=== PATIENT | female | born 1970 | race Caucasian/White ===

== ENCOUNTER 2018-10-03 14:40 | Emergency (ER) | payer SELFPAY ==
[2018-10-03 15:02] VITALS: BP 135/74
[2018-10-03] MEDS ORDERED: PREDNISONE 20 MG TABLET PO ONE (15:43)
--- NOTE | 2018-10-03 17:31 | ER Document Report ---
HPI - HPI Patient complains to provider of: sore throat Time Seen by Provider: 10/03/18 15:35 Pain Level: 4 Context: Pleasant 48-year-old female presents to the emergency department for sore throat times 1 day. She says she has very difficult swallowing and has had a cough. She states that she has had a fever but currently denies, denies chills, denies nausea, vomiting, diarrhea, abdominal pain. She denies earache, headache, complains of tender lymph nodes in the right side of her neck. She has no other complaints. - CONSTITUTIONAL Constitutional: REPORTS: Fever, Chills - EENT EENT: REPORTS: Sore Throat. DENIES: Ear Pain, Eye problems - NEURO Neurology: REPORTS: Weakness. DENIES: Headache, Vision blurred, Dizzinesss / Vertigo - CARDIOVASCULAR Cardiovascular: REPORTS: Chest pain - RESPIRATORY Respiratory: REPORTS: Trouble Breathing, Coughing - GASTROINTESTINAL Gastrointestinal: DENIES: Abdominal Pain, Black / Bloody Stools - URINARY Urinary: DENIES: Dysuria, Urgency, Frequency - REPRODUCTIVE Reproductive: DENIES: : - MUSCULOSKELETAL Musculoskeletal: DENIES: Extremity pain Past Medical History - Social History Smoking Status: Unknown if Ever Smoked Family History: None Patient has suicidal ideation: No Patient has homicidal ideation: No Renal/ Medical History: Denies: Hx Peritoneal Dialysis Vertical Provider Document - CONSTITUTIONAL Agree With Documented VS: Yes Notes: PHYSICAL EXAMINATION: Reviewed vital signs and charting by RN GENERAL: Well-appearing, well-nourished and in no acute distress. HEAD: Atraumatic, normocephalic. EYES: Pupils equal round and reactive to light, extraocular movements intact, sclera anicteric, conjunctiva are normal. ENT: nares patent, very impressive 3+ tonsillar hypertrophy, very erythematous, bilateral tonsillar exudate. Moist mucous membranes. NECK: Normal range of motion, supple without lymphadenopathy but tender lymph nodes on palpation LUNGS: Breath sounds clear to auscultation bilaterally and equal. No wheezes rales or rhonchi. HEART: Regular rate and rhythm without murmurs ABDOMEN: Soft, nontender, normoactive bowel sounds. No guarding, no rebound. No masses appreciated. EXTREMITIES: Normal range of motion, no pitting or edema. No cyanosis. NEUROLOGICAL: Face symmetric. Tongue protrudes midline. PSYCH: Normal mood, normal affect. SKIN: Warm, Dry, normal turgor, no rashes or lesions noted. - INFECTION CONTROL TRAVEL OUTSIDE OF THE [place] IN LAST 30 DAYS: No Course - Re-evaluation Re-evalutation: 10/03/18 17:35 Overall well-appearing 48-year-old female comes to us with sore throat times 1 day. On exam her oropharynx is very impressive for 3+ tonsillar hypertrophy, erythema, tonsillar exudate bilateral. Group A strep rapid testing was negative. I gave her 1 dose of prednisone here in the emergency room. I am sending her home with an additional 4 days of steroid treatment to help with the inflammation in her throat. I told her that the culture nurse will call her if the strep grows on culture. - Vital Signs Vital signs: Temp Pulse Resp BP Pulse Ox 97.6 F 76 16 135/74 H 94 10/03/18 15:01 10/03/18 15:01 10/03/18 15:01 10/03/18 15:01 10/03/18 15:01 Discharge - Discharge Clinical Impression: Pharyngitis Qualifiers: Pharyngitis/tonsillitis etiology: unspecified etiology Qualified Code(s): J02.9 - Acute pharyngitis, unspecified Condition: Good Disposition: HOME, SELF-CARE Instructions: Oral Narcotic Medication ([facility]), Sore Throat ([facility]) Additional Instructions: Pharyngitis. It is unclear what caused it but it is most likely a virus. Your rapid strep test was negative. We did send the test to the lab to see if anything grows out. If it does he will be called by the culture nurse and prescribed an appropriate antibiotic. It is negative then continue with symptomatic treatment. He can do warm salt water gargles. You can take Motrin 600 mg every 6 hours and Tylenol 1000 hours. Please take the steroid that was prescribed to you for the next 4 days until it is complete. You should see symptomatic relief with that. You can also eat a couple of tablespoons of honey a couple times a day to help soothe your throat. If you have worsening symptoms, have difficulty breathing, or have any other concerning symptoms please immediately return to the emergency room. Prescriptions: Prednisone [Deltasone 20 mg Tablet] 3 tab PO DAILY 5 Days #12 tablet
== END 2018-10-03 17:25 | disposition home or self-care (01) ==
LOC: ER 14:40
DX: J02.9 Acute pharyngitis, unspecified (principal); R05 Cough; R53.1 Weakness; R07.9 Chest pain, unspecified
CPT/HCPCS: 99282; 87070; 87880; J7512; 87077

== ENCOUNTER 2018-11-16 12:10 | Emergency (ER) | payer SELFPAY ==
[2018-11-16] MEDS ORDERED: PREDNISONE 20 MG TABLET PO ONE (13:09)
[2018-11-16] MEDS ORDERED: IPRATROPIUM/ALBUTEROL 0.5-2.5 MG/3 ML AMPUL NEB ONE ×2 (13:09→16:38)
--- NOTE | 2018-11-16 13:11 | ER Document Report ---
ED Medical Screen (RME) - General Chief Complaint: Flu Symptoms Stated Complaint: FLU LIKE SYMPTOMS Time Seen by Provider: 11/16/18 13:04 Notes: 48-year-old female patient emergency department for evaluation of shortness of breath, cough and wheeze generally not feeling well. States she cannot breathe. Thinks that she may have "congestive heart failure". Patient was a smoker but has not smoked in over 6 years but does use the vapor cigarettes. Sent here by her primary care doctor to be evaluated. Patient states that she is excessively sleepy. I have greeted and performed a rapid initial assessment of this patient. A comprehensive ED assessment and evaluation of the patient, analysis of test results and completion of the medical decision making process will be conducted by additional ED providers. TRAVEL OUTSIDE OF THE [place] IN LAST 30 DAYS: No - Related Data Allergies/Adverse Reactions: No Known Allergies Allergy (Verified 11/16/18 12:14) Past Medical History Renal/ Medical History: Denies: Hx Peritoneal Dialysis Physical Exam - Vital signs Vitals: Temp Pulse Resp BP Pulse Ox 99.1 F 68 20 148/88 H 91 L 11/16/18 12:35 11/16/18 12:35 11/16/18 12:35 11/16/18 12:35 11/16/18 12:35 - Notes Notes: Physical exam: Respiratory: Expiratory wheezes bilaterally, no obvious peripheral pitting edema. Heart is regular rate and rhythm. Course - Vital Signs Vital signs: Temp Pulse Resp BP Pulse Ox 99.1 F 68 20 148/88 H 91 L 11/16/18 12:35 11/16/18 12:35 11/16/18 12:35 11/16/18 12:35 11/16/18 12:35
--- NOTE | 2018-11-16 13:32 | RADIOLOGY REPORT (SQ) ---
EXAM DESCRIPTION: CHEST 2 VIEWS COMPLETED DATE/TIME: 11/16/2018 1:22 pm REASON FOR STUDY: sob COMPARISON: None. EXAM PARAMETERS: NUMBER OF VIEWS: two views TECHNIQUE: Digital Frontal and Lateral radiographic views of the chest acquired. RADIATION DOSE: NA LIMITATIONS: none FINDINGS: LUNGS AND PLEURA: No opacities, masses or pneumothorax. No pleural effusion. MEDIASTINUM AND HILAR STRUCTURES: No masses or contour abnormalities. HEART AND VASCULAR STRUCTURES: Heart normal size. No evidence for failure. BONES: No acute findings. HARDWARE: None in the chest. OTHER: No other significant finding. IMPRESSION: NO ACUTE RADIOGRAPHIC FINDING IN THE CHEST. TECHNICAL DOCUMENTATION: JOB ID: [id number] [employer]- All Rights Reserved Reading location - IP/workstation name: [email or web address]
[2018-11-16 14:01] LABS: ABSOLUTE BASOPHILS # (AUTO) 0.1 10^3/uL (0.0-0.2); ABSOLUTE EOSINOPHILS # (AUTO) 0.4 10^3/uL (0.0-0.6); ABSOLUTE MONOCYTES (AUTO) 0.5 10^3/uL (0.1-1.4); ABSOLUTE NEUT (AUTO) 4.8 10^3/uL (1.7-8.2); BASOPHILS % (AUTO) 0.7 % (0-2); EOSINOPHILS % (AUTO) 4.7 % (0-6); HEMATOCRIT 44.7 % (36.0-47.0); HEMOGLOBIN 15.5 g/dL (12.0-15.5); LYMPHOCYTES % (AUTO) 26.2 % (13-45); MEAN CORPUSCULAR HEMOGLOBIN 31.4 pg (27.0-33.4); MEAN CORPUSCULAR HGB CONC 34.7 g/dL (32.0-36.0); MEAN CORPUSCULAR VOLUME 90 fl (80-97); MONOCYTES % (AUTO) 6.4 % (3-13); PLATELET COUNT 283 10^3/uL (150-450); RED BLOOD COUNT 4.95 10^6/uL (3.72-5.28); RED CELL DISTRIBUTION WIDTH 14.2 % (11.5-14.0); TOTAL CELLS COUNTED % (AUTO) 100 %; WHITE BLOOD COUNT 7.7 10^3/uL (4.0-10.5)
[2018-11-16 14:20] LABS: ALANINE AMINOTRANSFERASE 34 U/L (9-52); ALBUMIN 4.3 g/dL (3.5-5.0); ALKALINE PHOSPHATASE 51 U/L (38-126); ANION GAP 8 (5-19); ASPARTATE AMINO TRANSFERASE 21 U/L (14-36); BILIRUBIN,DIRECT 0.1 mg/dL (0.0-0.4); BILIRUBIN,TOTAL 0.5 mg/dL (0.2-1.3); BLOOD UREA NITROGEN 11 mg/dL (7-20); CALCIUM 9.6 mg/dL (8.4-10.2); CARBON DIOXIDE 32 mmol/L (22-30); CHLORIDE 103 mmol/L (98-107); GLUCOSE 96 mg/dL (75-110); POTASSIUM 4.2 mmol/L (3.6-5.0); SODIUM 143.3 mmol/L (137-145); TOTAL PROTEIN 7.4 g/dL (6.3-8.2)
[2018-11-16 14:33] LABS: NT PRO BNP 104 pg/mL (<125)
[2018-11-16 14:36] LABS: TROPONIN I < 0.012 ng/mL
[2018-11-16] MEDS ORDERED: ALBUTEROL SULFATE HFA (90 MCG/PUFF) 8 GM MDI (1 MDI/ER DISP) IH PRN (17:32)
--- NOTE | 2018-11-16 17:32 | ER Document Report ---
ED General - General Chief Complaint: Flu Symptoms Stated Complaint: FLU LIKE SYMPTOMS Time Seen by Provider: 11/16/18 13:04 Notes: Patient is a 48-year-old female who presents the emergency department with a chief complaint of shortness of breath, cough, and wheezing. She states that she just does not feel well and has not felt well on and off for the past year. Admits to having a fever on and off. She is on according to the patient although the patient states that she was seen by her primary care provider in the ED she told the provider in triage that she was sent to the emergency department by her primary care doctor, but denies this during my encounter. She denies any chest pain, abdominal pain, dysuria, or other symptoms. TRAVEL OUTSIDE OF THE [place] IN LAST 30 DAYS: No - Related Data Allergies/Adverse Reactions: No Known Allergies Allergy (Verified 11/16/18 12:14) Past Medical History - Social History Smoking Status: Former Smoker Family History: None Patient has suicidal ideation: No Patient has homicidal ideation: No - Past Medical History Cardiac Medical History: Reports: Hx Hypertension Renal/ Medical History: Denies: Hx Peritoneal Dialysis Psychiatric Medical History: Reports: Hx Depression Review of Systems - Review of Systems Notes: REVIEW OF SYSTEMS: CONSTITUTIONAL : See HPI EENT: See HPI CARDIOVASCULAR: Denies chest pain. RESPIRATORY: See HPI GASTROINTESTINAL: Denies nausea, vomiting, and diarrhea. Denies abdominal pain. Denies constipation. GENITOURINARY: Denies difficulty urinating, burning, blood in urine, urgency or frequency. MUSCULOSKELETAL: Denies neck and back pain. Denies joint pain or swelling. SKIN: Denies rash, itchiness, or lesions HEMATOLOGIC : Denies easy bruising or bleeding. LYMPHATIC: Denies swollen, painful, enlarged glands. NEUROLOGICAL: Denies no numbness or tingling denies weakness. Denies headache. Denies altered mental status. Denies alteration in speech. PSYCHIATRIC: Denies stress, anxiety, alteration in sleep patterns, or depression. All other systems reviewed and negative. Physical Exam - Vital signs Vitals: Temp Pulse Resp BP Pulse Ox 99.1 F 68 20 148/88 H 91 L 11/16/18 12:35 11/16/18 12:35 11/16/18 12:35 11/16/18 12:35 11/16/18 12:35 - Notes Notes: PHYSICAL EXAMINATION: GENERAL: Appears well, healthy, well-nourished, no acute distress. HEAD: Normocephalic, atraumatic. EYES: PERRL, conjunctiva normal, all extraocular movements intact, sclera nonicteric ENT: Moist mucous membranes. NECK: Supple, no noticeable swelling, redness, rash. Normal range of motion. LUNGS: Equal breath sounds bilaterally wheezes noted to auscultation. No rales or rhonchi. CARDIOVASCULAR: S1-S2, regular rate, regular rhythm. Radial pulses 2+, normal. ABDOMEN: Normoactive bowel sounds. Soft, nontender, no guarding, no rebound te nderness, and no masses palpated. EXTREMITIES: Normal strength and range of motion, no pitting or edema. No cyanosis. NEUROLOGICAL: Moves all extremities upon command. Strength 5/5 in all extremi ties. PSYCH: Normal mood, normal affect. SKIN: Warm, dry. No rash, lesions, ulcerations noted. Normal skin turgor. Course - Re-evaluation Re-evalutation: 11/16/18 16:30 The patient has some wheezing noted. Another DuoNeb treatment will be ordered. Her labs are unremarkable and her chest x-ray is normal, ruling out pneumonia. 11/16/18 17:30 Patient's lung sounds have greatly improved after her second DuoNeb treatment. She states that she does feel better. She will be sent home with a dose of steroids and with montelukast to help with her symptoms. - Vital Signs Vital signs: Temp Pulse Resp BP Pulse Ox 97.4 F 76 20 147/78 H 91 L 11/16/18 17:36 11/16/18 17:36 11/16/18 12:35 11/16/18 17:36 11/16/18 17:36 - Laboratory Result Diagrams: 11/16/18 13:45 11/16/18 13:45 Laboratory results interpreted by me: 11/16/18 11/16/18 13:45 13:45 RDW 14.2 H Carbon Dioxide 32 H Discharge - Discharge Clinical Impression: Cough, Flu-like symptoms Condition: Stable Disposition: HOME, SELF-CARE Additional Instructions: You were seen today in the emergency department for a cough and flulike symptoms. Your chest x-ray is normal. You have been prescribed an albuterol inhaler with a spacer. You can use 1-2 puffs every 4-6 hours as needed for shortness of breath. You have also been given Singulair, medication to help with your symptoms. Take 1 tablet every evening as needed. You can take 1000 mg of acetaminophen and 600 mg of ibuprofen as needed for any fever or pain. If you develop shortness of breath, worsening symptoms, or any symptoms that are worrisome to you, please return to the emergency department. Prescriptions: Montelukast Sodium [Singulair 10 mg Tablet] 10 mg PO QHS #30 tablet Prednisone [Deltasone 20 mg Tablet] 3 tab PO DAILY 5 Days #15 tablet
[2018-11-16 17:37] VITALS: BP 147/78
--- NOTE | 2018-11-16 19:18 | EKG REPORT ---
SEVERITY:- NORMAL ECG - SINUS RHYTHM : Confirmed by: Shae Cat MD 16-Nov-2018 19:17:27
== END 2018-11-16 18:17 | disposition home or self-care (01) ==
LOC: ER 12:10
DX: R05 Cough (principal); R06.02 Shortness of breath; R06.2 Wheezing; R50.9 Fever, unspecified; I10 Essential (primary) hypertension; Z87.891 Personal history of nicotine dependence
CPT/HCPCS: 93005; 94640 ×2; 99284; 36415; 85025; 80053; 84484; 83880; 71046; 93010; J7512; J3490; J7620

== ENCOUNTER 2019-05-10 00:57 | Emergency (ER) | payer SELFPAY ==
[2019-05-10 03:09] VITALS: BP 145/88
== END 2019-05-10 03:33 | disposition left against medical advice (07) ==
LOC: ER 00:57
DX: Z53.21 Procedure and treatment not carried out due to patient leaving prior to being seen by health care provider (principal); R06.02 Shortness of breath

== ENCOUNTER 2020-04-06 21:33 | Inpatient (IN) | payer SELFPAY ==
[2020-04-06 22:10] LABS: HEMATOCRIT 47.6 % (36.0-47.0); HEMOGLOBIN 15.9 g/dL (12.0-15.5); MEAN CORPUSCULAR HEMOGLOBIN 30.7 pg (27.0-33.4); MEAN CORPUSCULAR HGB CONC 33.5 g/dL (32.0-36.0); MEAN CORPUSCULAR VOLUME 92 fl (80-97); PLATELET COUNT 264 10^3/uL (150-450); RED BLOOD COUNT 5.18 10^6/uL (3.72-5.28); RED CELL DISTRIBUTION WIDTH 14.7 % (11.5-14.0); WHITE BLOOD COUNT 13.5 10^3/uL (4.0-10.5)
[2020-04-06] MEDS ORDERED: METHYLPREDNISOLONE INJ 125 MG/2 ML SDV IV ONE (22:12)
[2020-04-06] MEDS ORDERED: IPRATROPIUM/ALBUTEROL 0.5-2.5 MG/3 ML AMPUL NEB ONE (22:12)
[2020-04-06 22:15] LABS: ALBUMIN 4.5 g/dL (3.5-5.0); ALKALINE PHOSPHATASE 60 U/L (38-126); ANION GAP 8 (5-19); ASPARTATE AMINO TRANSFERASE 25 U/L (14-36); BILIRUBIN,TOTAL 0.5 mg/dL (0.2-1.3); BLOOD UREA NITROGEN 11 mg/dL (7-20); CALCIUM 9.2 mg/dL (8.4-10.2); CARBON DIOXIDE 28 mmol/L (22-30); CHLORIDE 101 mmol/L (98-107); GLUCOSE 122 mg/dL (75-110); POTASSIUM 4.1 mmol/L (3.6-5.0); TOTAL PROTEIN 7.8 g/dL (6.3-8.2)
[2020-04-06 22:29] LABS: ABSOLUTE LYMPHOCYTES# (MANUAL) 1.2 10^3/uL (0.5-4.7); ABSOLUTE MONOCYTES # (MANUAL) 0.4 10^3/uL (0.1-1.4); BAND NEUTROPHILS % (MANUAL) 2 % (3-5); BASOPHILS % (MANUAL) 0 % (0-2); EOSINOPHILS % (MANUAL) 0 % (0-6); LYMPHOCYTES % (MANUAL) 9 % (13-45); MONOCYTES % (MANUAL) 3 % (3-13); SEGMENTED NEUTROPHILS % (MAN) 86 % (42-78); TOTAL CELLS COUNTED 100
[2020-04-06 22:32] LABS: ANISOCYTOSIS SLIGHT; OVALOCYTES SLIGHT; PLATELET COMMENT ADEQUATE; POIKILOCYTOSIS SLIGHT; TOXIC GRANULATION SLIGHT
[2020-04-06] MEDS: MAGNESIUM SULFATE/D5W 1 GM/100 ML RTUPB IV SCH ×2 (22:44→23:22)
[2020-04-06] MEDS ORDERED: ONDANSETRON HCL INJ/PF 4 MG/2 ML SDV IV ONE (22:51)
--- NOTE | 2020-04-06 23:24 | RADIOLOGY REPORT (SQ) ---
EXAM DESCRIPTION: XR CHEST 1 VIEW COMPLETED DATE/TME: 04/06/2020 22:00 CLINICAL HISTORY: 49 years, Female, SOB COMPARISON: 11/16/2018 chest NUMBER OF VIEWS: 1 TECHNIQUE: Portable chest LIMITATIONS: None. FINDINGS: The heart size is normal. Patchy bibasilar airspace opacities. No pneumothorax IMPRESSION: Bibasilar airspace opacities worrisome for pneumonitis copyright 2010 [employer]- All Rights Reserved
[2020-04-06 23:58] LABS: APPEARANCE,URINE CLOUDY; BILIRUBIN,URINE NEGATIVE (NEGATIVE); COLOR,URINE AMBER; GLUCOSE, URINE NEGATIVE (NEGATIVE); KETONES,URINE NEGATIVE (NEGATIVE); LEUKOCYTE ESTERASE,URINE NEGATIVE (NEGATIVE); NITRITE,URINE NEGATIVE (NEGATIVE); PROTEIN,URINE 100 mg/dL (NEGATIVE); URINE SPECIFIC GRAVITY 1.024; UROBILINOGEN,URINE NEGATIVE mg/dL (<2.0)
--- NOTE | 2020-04-07 | ER Document Report ---
Entered by IZA YATES SCRIBE 04/06/20 [id number] Acting as scribe for:DANDRE QUINTANA IV, MD ED Respiratory Problem - General Chief Complaint: Respiratory Distress Stated Complaint: SHORTNESS OF BREATH Time Seen by Provider: 04/06/20 22:01 Primary Care Provider: JACQUES SEWELL MD [Primary Care Provider] - Follow up as needed Mode of Arrival: Medic Information source: Patient, Emergency Med Personnel Notes: This 49 year old female patient with a history of asthma brought in by EMS from home presents to the ED today with complaints of respiratory distress that started prior to arrival. ED nurse reports that the patient woke up around 0300 this morning with shortness of breath that became progressively worse throughout the day. Patient tried multiple nebulizer treatments at home without relief. EMS reports a O2 saturations of 79-80% on RA upon their arrival. Patient received x3 DuoNeb treatments en route via EMS. Patient was placed on NRB upon ED arrival with O2 sats up to 94%. She notes positive COVID exposure and fevers at home t [place] that have since resolved with Tylenol. TRAVEL OUTSIDE OF THE [place] IN LAST 30 DAYS: No - Related Data Allergies/Adverse Reactions: No Known Allergies Allergy (Verified 11/16/18 12:14) Past Medical History - General Information source: Patient, [facility] Records - Social History Smoking Status: Current Every Day Smoker Smoking Education Provided: No Family History: Reviewed & Not Pertinent Patient has suicidal ideation: No Patient has homicidal ideation: No - Past Medical History Cardiac Medical History: Reports: Hx Hypertension Pulmonary Medical History: Reports: Hx Asthma Psychiatric Medical History: Reports: Hx Depression Review of Systems - Review of Systems Constitutional: See HPI, Fever EENT: No symptoms reported Cardiovascular: No symptoms reported Respiratory: See HPI, Short of breath Gastrointestinal: No symptoms reported Genitourinary: No symptoms reported Female Genitourinary: No symptoms reported Musculoskeletal: No symptoms reported Skin: No symptoms reported Hematologic/Lymphatic: No symptoms reported Neurological/Psychological: No symptoms reported -: Yes All other systems reviewed and negative Physical Exam - Vital signs Vitals: Temp Resp Pulse Ox 98.7 F 17 91 L 04/06/20 21:33 04/06/20 21:33 04/06/20 21:33 - General General appearance: Alert, Other - Speaks in short sentences - HEENT Head: Normocephalic, Atraumatic Eyes: Normal Pupils: PERRL - Respiratory Respiratory status: Tachypnea, Other - 94-96% O2 saturations with NRB Chest status: Nontender Breath sounds: Wheezing - Diffuse wheezing Chest palpation: Normal - Cardiovascular Rhythm: Regular, Tachycardia Heart sounds: Normal auscultation Murmur: No Friction rub: No Gallop: None auscultated - Abdominal Inspection: Normal Distension: No distension Bowel sounds: Normal Tenderness: Nontender - Abdomen soft Organomegaly: No organomegaly - Back Back: Normal, Nontender - Extremities General upper extremity: Normal inspection General lower extremity: Normal inspection - Neurological Neuro grossly intact: Yes Orientation: AAOx4 [place] Coma Scale Eye Opening: Spontaneous [place] Coma Scale Verbal: Oriented [place] Coma Scale Motor: Obeys Commands [place] Coma Scale Total: 15 - Psychological Associated symptoms: Normal affect, Normal mood - Skin Skin Temperature: Warm Skin Moisture: Dry Skin Color: Normal Course - Re-evaluation Re-evalutation: 04/07/20 03:31 Patient's oxygen saturation drops down into the 80s off of O2. Patient is not O2 dependent at home. Results of ED MSE discussed with patient. Admission recommended, patient accepted. - Vital Signs Vital signs: Temp Pulse Resp BP Pulse Ox 98.9 F 18 123/77 93 04/06/20 21:47 04/07/20 01:01 04/07/20 01:01 04/07/20 01:01 - Laboratory Result Diagrams: 04/06/20 21:42 04/06/20 21:42 Laboratory results interpreted by me: 04/06/20 04/06/20 04/06/20 21:42 21:42 23:31 WBC 13.5 H Hgb 15.9 H Hct 47.6 H RDW 14.7 H Seg Neuts % (Manual) 86 H Band Neutrophils % 2 L Lymphocytes % (Manual) 9 L Abs Neuts (Manual) 11.9 H VBG pH VBG pCO2 Sodium 136.7 L Glucose 122 H Urine Protein 100 H Urine Blood LARGE H 04/07/20 01:53 WBC Hgb Hct RDW Seg Neuts % (Manual) Band Neutrophils % Lymphocytes % (Manual) Abs Neuts (Manual) VBG pH 7.26 L VBG pCO2 66.8 H* Sodium Glucose Urine Protein Urine Blood - Diagnostic Test Radiology reviewed: Reports reviewed - EKG Interpretation by Me Additional EKG results interpreted by me: 04/07/20 03:32 EKG obtained on 04/06/2020 at 2205 hrs. was interpreted by this MD. Findings: Normal sinus rhythm, rate 75, normal axis, P waves preceding QRS complexes, QRS complexes appear narrow, there are no obvious patterns of ST segment elevation or depression present to suggest acute myocardial ischemia or infarction. Impression: Normal sinus rhythm with nonspecific ST segments. - Consults dr. mario olivas Time consulted: 03:30 - dr. olivas agreed to admit pt Reason for consultation: 04/07/20 03:34 bilateral pneumonia, acute respiratory failure with hypoxia Discharge - Discharge Clinical Impression: Acute respiratory failure with hypoxia Bilateral pneumonia Qualifiers: Pneumonia type: due to unspecified organism Lung location: unspecified part of lung Qualified Code(s): J18.9 - Pneumonia, unspecified organism Asthma exacerbation Qualifiers: Asthma severity: unspecified severity Asthma persistence: unspecified Qualified Code(s): J45.901 - Unspecified asthma with (acute) exacerbation Disposition: ADMITTED INPATIENT Admitting Provider: Alma (Hospitalist) Unit Admitted: Medical Floor Referrals: JACQUES SEWELL MD [Primary Care Provider] - Follow up as needed I personally performed the services described in the documentation, reviewed and edited the documentation which was dictated to the scribe in my presence, and it accurately records my words and actions.
[2020-04-07 02:29] LABS: VENOUS BLOOD BASE EXCESS -0.1 mmol/L; VENOUS BLOOD HCO3 29.2 mmol/L (20-32); VENOUS BLOOD PH 7.26 (7.30-7.42)
[2020-04-07 02:31] LABS: VENOUS BLOOD PCO2 66.8 mmHg (35-63)
[2020-04-07] MEDS ORDERED: LEVOFLOXACIN 750 MG/D5W RTU 750 MG/150 ML RTUPB IV ONE (03:00)
[2020-04-07] MEDS ORDERED: NORMAL SALINE IV ONE (03:00)
[2020-04-07] MEDS ORDERED: LEVALBUTEROL HCL NEB 0.63 MG/3 ML AMPUL NEB PRN (03:57)
[2020-04-07] MEDS ORDERED: GUAIFENESIN SYRP 200 MG/10 ML UDC PO PRN (03:57)
[2020-04-07] MEDS ORDERED: HYDRALAZINE HCL INJ/PF 20 MG/1 ML SDV IV PRN (04:03)
[2020-04-07] MEDS ORDERED: ACETAMINOPHEN 325 MG TABLET PO PRN (04:03)
[2020-04-07] MEDS ORDERED: NICOTINE 21 MG/24 HR PATCH.TD24 TD PRN (04:03)
[2020-04-07] MEDS ORDERED: MAGNESIUM HYDROXIDE SUSP 30 ML UDCUP PO PRN (04:03)
[2020-04-07] MEDS ORDERED: METOPROLOL TARTRATE PF/INJ 5 MG/5 ML SDV IV PRN (04:03)
[2020-04-07] MEDS ORDERED: LORAZEPAM INJ 2 MG/1 ML VIAL IV PRN (04:03)
[2020-04-07] MEDS ORDERED: MAG HYDROX/AL HYDROX/SIMETH SUSP 30 ML UDCUP PO PRN (04:03)
[2020-04-07] MEDS ORDERED: PROMETHAZINE HCL INJ 25 MG/1 ML VIAL IV PRN (04:05)
[2020-04-07] MEDS: HEPARIN SOD (PORCINE) 5,000 UNIT/ML 1 ML VIAL SUBCUT SCH ×3 (06:06→23:21)
--- NOTE | 2020-04-07 06:12 | PDOC H&P ---
History of Present Illness Admission Date/PCP: 04/07/2020 03:32 JACQUES SEWELL MD Patient complains of: Dyspnea History of Present Illness: KAITLIN SHAFER is a 49 year old female who presents the emergency room with a one-day history of dyspnea. 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 Her dyspnea was worsened by exertion or activity, was accompanied by wheezing and a subjective fever, and is associated with COVID-19 exposure. She denies other associated or accompanying signs and symptoms. She admits prior similar episodes due to her asthma. She is an everyday cigarette smoker. She has not identified any additional aggravating or ameliorating factors for her dyspnea. In the emergency room she was found to have an elevated white blood count, hypoxic and hypercapnic respiratory failure on arterial blood gases and a chest x-ray revealing bibasilar pneumonia. She was treated with IV antibiotics, nebulizer therapy and intravenous Solu-Medrol as well as intravenous magnesium sulfate. She was tested for COVID-19 and blood cultures were performed. She was subsequently admitted to the hospital for further evaluation treatment. Past Medical History Cardiac Medical History: Reports: Hypertension Denies: Atrial Fibrillation, Coronary Artery Disease, DVT, Hyperlipidema, Peripheral Vascular Disease, Pulmonary Embolism Pulmonary Medical History: Reports: Asthma Denies: Chronic Obstructive Pulmonary Disease (COPD) EENT Medical History: Denies: Cataracts, Ears - Hearing aids Neurological Medical History: Denies: Hemorrhagic CVA, Ischemic CVA, Seizures Endocrine Medical History: Denies: Diabetes Mellitus Type 1, Diabetes Mellitus Type 2, Hyperthyroidism, Hypothyroidism Renal/ Medical History: Denies: Chronic Kidney Disease, Nephrolithiasis Malignancy Medical History: Reports: None GI Medical History: Denies: Cirrhosis, Crohn's Disease, Gastroesophageal Reflux Disease, Hepatitis, Peptic Ulcer Disease, Ulcerative Colitis Musculoskeltal Medical History: Denies: Arthritis, Gout Skin Medical History: Denies: Eczema, Psoriasis Psychiatric Medical History: Reports: Depression, Tobacco Dependency Denies: Alcohol Dependency, Substance Abuse Traumatic Medical History: Reports: None Hematology: Denies: Anemia, Bleeding Tendencies Infectious Medical History: Reports: None Past Surgical History Past Surgical History: Reports: None Social History Lives with: Spouse/Significant other Smoking Status: Current Every Day Smoker Cigarettes Packs Per Day: 0.5 Electronic Cigarette use?: No Frequency of Alcohol Use: None Hx Recreational Drug Use: No Drugs: None Hx Prescription Drug Abuse: No - Advance Directive Resuscitation Status: Full Code Surrogate healthcare decision maker:: Esa Manuel Family History Family History: Hypertension. denies: CAD, DM, Malignancy Parental Family History Reviewed: Yes Children Family History Reviewed: No Sibling(s) Family History Reviewed.: Yes Medication/Allergy Home Medications: Prednisone [Deltasone 20 mg Tablet] 3 tab PO DAILY 5 Days #12 tablet 10/03/18 Montelukast Sodium [Singulair 10 mg Tablet] 10 mg PO QHS #30 tablet 11/16/18 Prednisone [Deltasone 20 mg Tablet] 3 tab PO DAILY 5 Days #15 tablet 11/16/18 Allergies/Adverse Reactions: No Known Allergies Allergy (Verified 11/16/18 12:14) Review of Systems Constitutional: PRESENT: as per HPI, fever(s). ABSENT: chills Eyes: ABSENT: visual disturbances, other - Eye pain Ears: ABSENT: hearing changes, other - Ear pain Nose, Mouth, and Throat: ABSENT: headache(s), sore throat Cardiovascular: PRESENT: as per HPI, dyspnea on exertion. ABSENT: chest pain, edema, orthropnea, palpitations Respiratory: PRESENT: as per HPI, dyspnea, other - Wheezing Gastrointestinal: ABSENT: abdominal pain, constipation, diarrhea, nausea, vomiting Genitourinary: ABSENT: dysuria, hematuria Musculoskeletal: ABSENT: back pain, joint swelling Integumentary: ABSENT: pruritus, rash Neurological: ABSENT: confusion, convulsions, focal weakness, memory loss, syncope Psychiatric: ABSENT: anxiety, depression Endocrine: ABSENT: cold intolerance, heat intolerance Hematologic/Lymphatic: ABSENT: easy bleeding, easy bruising Allergic/Immunologic: ABSENT: seasonal rhinorrhea Physical Exam Vital Signs: Temp Pulse Resp BP Pulse Ox 98.9 F 18 123/77 93 04/06/20 21:47 04/07/20 01:01 04/07/20 01:01 04/07/20 01:01 Intake & Output 04/05/20 04/06/20 04/07/20 23:59 23:59 23:59 Intake Total 100 100 Balance 100 100 Weight 92.533 kg General appearance: PRESENT: cooperative, mild distress - Secondary to dyspnea Head exam: ABSENT: atraumatic, normocephalic Eye exam: PRESENT: conjunctiva pink. ABSENT: conjunctival injection, scleral icterus Ear exam: PRESENT: normal external ear exam. ABSENT: bleeding, drainage Mouth exam: PRESENT: dry mucosa, neck supple Neck exam: ABSENT: thyromegaly, tracheal deviation Respiratory exam: PRESENT: accessory muscle use, decreased breath sounds - Mildly decreased breath sounds throughout all oquendo, prolonged expiratory phas - Moderately prolonged expiratory phase throughout all oquendo, symmetrical, wheezes - Expiratory wheezes throughout all oquendo Cardiovascular exam: PRESENT: RRR. ABSENT: clicks, gallop, rubs Pulses: PRESENT: normal radial pulses, normal dorsalis pedis pul Vascular exam: PRESENT: normal capillary refill. ABSENT: pallor GI/Abdominal exam: PRESENT: normal bowel sounds, soft. ABSENT: tenderness Rectal exam: PRESENT: deferred Extremities exam: ABSENT: joint swelling, pedal edema Musculoskeletal exam: ABSENT: deformity, dislocation Neurological exam: PRESENT: alert, oriented to person, oriented to place, oriented to time, oriented to situation, CN II-XII grossly intact. ABSENT: motor sensory deficit Psychiatric exam: PRESENT: appropriate affect, normal mood Skin exam: PRESENT: dry, intact, warm. ABSENT: jaundice, rash, urticaria Results Laboratory Results: 04/06/20 21:42 04/06/20 21:42 04/06/20 04/06/20 04/06/20 21:42 21:42 23:31 WBC 13.5 H RBC 5.18 Hgb 15.9 H Hct 47.6 H MCV 92 MCH 30.7 MCHC 33.5 RDW 14.7 H Plt Count 264 Seg Neutrophils % Not Reportable VBG pH VBG pCO2 VBG HCO3 VBG Base Excess Sodium 136.7 L Potassium 4.1 Chloride 101 Carbon Dioxide 28 Anion Gap 8 BUN 11 Creatinine 0.81 Est GFR ( Amer) > 60 Glucose 122 H Lactic Acid Calcium 9.2 Total Bilirubin 0.5 AST 25 Alkaline Phosphatase 60 Total Protein 7.8 Albumin 4.5 Urine Color PJ Urine Appearance CLOUDY Urine pH 5.0 Ur Specific [place] 1.024 Urine Protein 100 H Urine Glucose (UA) NEGATIVE Urine Ketones NEGATIVE Urine Blood LARGE H Urine Nitrite NEGATIVE Ur Leukocyte Esterase NEGATIVE Urine WBC (Auto) 5 Urine RBC (Auto) 7 04/07/20 04/07/20 01:25 01:53 WBC RBC Hgb Hct MCV MCH MCHC RDW Plt Count Seg Neutrophils % VBG pH 7.26 L VBG pCO2 66.8 H* VBG HCO3 29.2 VBG Base Excess -0.1 Sodium Potassium Chloride Carbon Dioxide Anion Gap BUN Creatinine Est GFR ( Amer) Glucose Lactic Acid 1.6 Calcium Total Bilirubin AST Alkaline Phosphatase Total Protein Albumin Urine Color Urine Appearance Urine pH Ur Specific [place] Urine Protein Urine Glucose (UA) Urine Ketones Urine Blood Urine Nitrite Ur Leukocyte Esterase Urine WBC (Auto) Urine RBC (Auto) Impressions: Chest X-Ray 04/06/20 22:00 IMPRESSION: Bibasilar airspace opacities worrisome for pneumonitis copyright 2010 [employer]- All Rights Reserved Assessment and Plan - Diagnosis (1) Acute exacerbation of COPD with asthma Is this a current diagnosis for this admission?: Yes (2) Acute respiratory failure with hypoxia and hypercapnia Is this a current diagnosis for this admission?: Yes (3) Community acquired bilateral lower lobe pneumonia Is this a current diagnosis for this admission?: Yes (4) Hypertension Qualifiers: Hypertension type: essential hypertension Qualified Code(s): I10 - Ess ential (primary) hypertension Is this a current diagnosis for this admission?: Yes (5) Depression Qualifiers: Depression Type: unspecified Qualified Code(s): F32.9 - Major depressive disorder, single episode, unspecified Is this a current diagnosis for this admission?: Yes (6) Tobacco use disorder Is this a current diagnosis for this admission?: Yes - Plan Summary Summary: Patient will be admitted to the medical floor where she will receive routine supportive and symptomatic cares. She was receive supplemental oxygen via BiPAP in order to maintain an adequate oxygen saturation. She will receive an aggressive pulmonary toilet utilizing nebulized, Xopenex, Atrovent, Pulmicort a nd Mucomyst. She will receive IV Solu-Medrol to complete a burst dose therapy protocol requiring 3 additional doses of 40 mg IV every 6 hours. She will be on a cardiac diet. She will be treated with IV antibiotics utilizing Rocephin and Zithromax. Smoking cessation is advised and counseled briefly at the bedside a nicotine replacement patch is available for the patient's use, if desired. CBCs , metabolic profiles, magnesium levels and additional laboratory and/or radiographic evaluations will be obtained as needed. - Time Time Spent with patient: 15-24 minutes Smoking Cessation Education: 3 to 10 minutes Medications reviewed and adjusted accordingly: Yes Anticipated Discharge Disposition: Home, Self Care Anticipated Discharge: when bed available - Undetermined - Inpatient Certification Based on my medical assessment, after consideration of the patient's comorbidities, presenting symptoms, or acuity I expect that the services needed warrant INPATIENT care.: Yes I certify that my determination is in accordance with my understanding of Medicare's requirements for reasonable and necessary INPATIENT services [42 CFR 412.3e].: Yes Medical Necessity: Need Close Monitoring Due to Risk of Patient Decompensation, Need for Nebulizer Therapy and Monitoring of Response, Need for IV Antibiotics
[2020-04-07] MEDS: BUDESONIDE NEB 0.5 MG/2 ML AMPUL NEB SCH ×2 (08:09→20:40)
[2020-04-07] MEDS: LEVALBUTEROL HCL NEB 1.25 MG/3 ML AMPUL NEB SCH ×2 (08:10→15:45)
[2020-04-07] MEDS: IPRATROPIUM BROMIDE 0.02% NEB 0.5 MG/2.5 ML AMPUL NEB SCH ×2 (08:10→15:45)
[2020-04-07] MEDS: ACETYLCYSTEINE 20% SOLN 800 MG/4 ML VIAL.NEB NEB SCH ×2 (08:13→20:40)
[2020-04-07] MEDS ORDERED: LEVALBUTEROL HCL NEB 1.25 MG/3 ML AMPUL NEB ONE (08:14)
[2020-04-07] MEDS: FAMOTIDINE 20 MG TABLET PO SCH ×2 (09:59→23:23)
[2020-04-07] MEDS: CEFTRIAXONE 1 GM/D5W RTU 1 GM/50 ML RTUPB IV SCH (09:59)
[2020-04-07] MEDS: METHYLPREDNISOLONE INJ 40 MG/1 ML SDV IV SCH ×3 (09:59→23:22)
[2020-04-07] MEDS: DOCUSATE SODIUM 100 MG CAPSULE PO SCH ×2 (09:59→17:55)
[2020-04-07] MEDS: AZITHROMYCIN 500 MG in DEXTROSE 5%-WATER 250 ML IV SCH (10:11)
[2020-04-07 11:46] LABS: ARTERIAL BLOOD FIO2 50%; ARTERIAL BLOOD H2CO3 1.69 mmol/L (1.05-1.35); ARTERIAL BLOOD HCO3 25.8 mmol/L (20-24); ARTERIAL BLOOD O2 SATURATION 89.7 % (94-98); ARTERIAL BLOOD PCO2 56.1 mmHg (35-45); ARTERIAL BLOOD PH 7.28 (7.35-7.45); ARTERIAL BLOOD PO2 64.6 mmHg (80-100); ARTERIAL BLOOD TOTAL CO2 27.5 mmol/L (21-25)
[2020-04-07] MEDS: SERTRALINE HCL 50 MG TABLET PO SCH (13:46)
[2020-04-07] MEDS ORDERED: IPRATROPIUM/ALBUTEROL 0.5-2.5 MG/3 ML AMPUL NEB PRN (18:27)
--- NOTE | 2020-04-07 19:21 | EKG REPORT ---
SEVERITY:- NORMAL ECG - SINUS RHYTHM : Confirmed by: Max Maya 07-Apr-2020 19:20:39
[2020-04-07] MEDS: IPRATROPIUM/ALBUTEROL 0.5-2.5 MG/3 ML AMPUL NEB SCH (20:40)
[2020-04-07] MEDS: MELATONIN 5 MG TABLET PO PRN (23:23)
[2020-04-08] MEDS: HEPARIN SOD (PORCINE) 5,000 UNIT/ML 1 ML VIAL SUBCUT SCH ×3 (05:34→21:21)
[2020-04-08 07:21] LABS: HEMATOCRIT 42.4 % (36.0-47.0); MEAN CORPUSCULAR HEMOGLOBIN 30.7 pg (27.0-33.4); MEAN CORPUSCULAR VOLUME 93 fl (80-97); PLATELET COUNT 253 10^3/uL (150-450); RED BLOOD COUNT 4.57 10^6/uL (3.72-5.28); RED CELL DISTRIBUTION WIDTH 14.7 % (11.5-14.0); WHITE BLOOD COUNT 18.3 10^3/uL (4.0-10.5)
[2020-04-08 07:45] LABS: ANION GAP 6 (5-19); BLOOD UREA NITROGEN 21 mg/dL (7-20); CALCIUM 8.9 mg/dL (8.4-10.2); CARBON DIOXIDE 27 mmol/L (22-30); CHLORIDE 105 mmol/L (98-107); GLUCOSE 161 mg/dL (75-110)
[2020-04-08] MEDS: ACETYLCYSTEINE 20% SOLN 800 MG/4 ML VIAL.NEB NEB SCH ×2 (09:18→21:30)
[2020-04-08] MEDS: BUDESONIDE NEB 0.5 MG/2 ML AMPUL NEB SCH ×2 (09:18→21:30)
[2020-04-08] MEDS: IPRATROPIUM/ALBUTEROL 0.5-2.5 MG/3 ML AMPUL NEB SCH ×3 (09:18→21:30)
[2020-04-08] MEDS ORDERED: AMLODIPINE BESYLATE 5 MG TABLET PO SCH (10:00)
[2020-04-08] MEDS ORDERED: LISINOPRIL 10 MG TABLET PO SCH (10:00)
[2020-04-08] MEDS: FAMOTIDINE 20 MG TABLET PO SCH ×2 (10:23→21:20)
[2020-04-08] MEDS: SERTRALINE HCL 50 MG TABLET PO SCH (10:23)
[2020-04-08] MEDS: CEFTRIAXONE 1 GM/D5W RTU 1 GM/50 ML RTUPB IV SCH (10:24)
[2020-04-08] MEDS: DOCUSATE SODIUM 100 MG CAPSULE PO SCH ×2 (10:26→17:45)
--- NOTE | 2020-04-08 11:01 | PDOC PROGRESS REPORT ---
Subjective Progress Note for:: 04/08/20 Subjective:: KAITLIN SHAFER is a 49 year old female who presents the emergency room with a one-day history of dyspnea. 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 Her dyspnea was worsened by exertion or activity, was accompanied by wheezing and a subjective fever, and is associated with COVID-19 exposure. She denies other associated or accompanying signs and symptoms. She admits prior similar episodes due to her asthma. She is an everyday cigarette smoker. She has not identified any additional aggravating or ameliorating factors for her dyspnea. In the emergency room she was found to have an elevated white blood count, hypoxic and hypercapnic respiratory failure on arterial blood gases and a chest x-ray revealing bibasilar pneumonia. She was treated with IV antibiotics, nebulizer therapy and intravenous Solu-Medrol as well as intravenous magnesium sulfate. She was tested for COVID-19 and blood cultures were performed. She was subsequently admitted to the hospital for further evaluation treatment 04/08/2020. Yesterday patient was noted to be having worsening shortness of breath, and ABG showed hypoxemia and hypercarbia, patient was transitioned to BiPAP, overnight she had to use BiPAP, stating that she had a rough night, this morning is still on BiPAP however does not seem to be in moderate distress, she is p.o. tolerant having normal bowel bladder movement, denies any fever, chills, nausea, vomiting, diarrhea, constipation or any urinary symptoms. Reason For Visit: ACUTE EXACERBATION OF COPD WITH ASTHMA,ACUTE Physical Exam Vital Signs: Temp Pulse Resp BP Pulse Ox 97.5 F 66 25 H 108/67 99 04/08/20 09:39 04/08/20 09:39 04/08/20 09:39 04/08/20 09:39 04/08/20 09:39 Pulse Oximeter Continuous Start: 04/07/20 03:57 Freq: RTQ4 Status: Active Protocol: Document 04/08/20 04:00 AARON (Rec: 04/08/20 04:12 AARON [id number]) Pulse Oximetry Assessment Oxygen Saturation (92-100) 98 Oxygen Delivery Method Bi-pap Fraction of Inspired Oxygen (FIO2) 50 Equipment Usage Equipment in Use Continuous SpO2 Machine # 7 Intake & Output 04/07/20 04/08/20 04/09/20 06:59 06:59 06:59 Intake Total 3125 660 Balance 3125 660 Weight 103.9 kg 103.9 kg General appearance: PRESENT: mild distress, obese Head exam: PRESENT: atraumatic, normocephalic Respiratory exam: PRESENT: prolonged expiratory phas. ABSENT: rales, rhonchi, wheezes Cardiovascular exam: PRESENT: RRR, tachycardia. ABSENT: diastolic murmur, rubs, systolic murmur GI/Abdominal exam: PRESENT: normal bowel sounds, soft. ABSENT: distended, guarding, mass, organolmegaly, rebound, tenderness Neurological exam: PRESENT: alert, awake, oriented to person, oriented to place, oriented to time, oriented to situation, CN II-XII grossly intact. ABSENT: motor sensory deficit Results Laboratory Results: 04/08/20 06:40 04/08/20 06:40 04/07/20 04/08/20 04/08/20 11:25 06:40 06:40 WBC 18.3 H RBC 4.57 Hgb 14.0 Hct 42.4 MCV 93 MCH 30.7 MCHC 33.0 RDW 14.7 H Plt Count 253 Carbonic Acid 1.69 H HCO3/H2CO3 Ratio 15:1 ABG pH 7.28 L ABG pCO2 56.1 H ABG pO2 64.6 L ABG HCO3 25.8 H ABG O2 Saturation 89.7 L ABG Base Excess -2.0 FiO2 50% Sodium 137.8 Potassium 5.0 Chloride 105 Carbon Dioxide 27 Anion Gap 6 BUN 21 H Creatinine 0.68 Est GFR ( Amer) > 60 Glucose 161 H Calcium 8.9 04/07/20 01:25 Blood Blood Culture (PCR) - Final Streptococcus Species Impressions: Chest X-Ray 04/06/20 22:00 IMPRESSION: Bibasilar airspace opacities worrisome for pneumonitis copyright 2011 [employer]- All Rights Reserved Assessment and Plan - Diagnosis (1) Community acquired bilateral lower lobe pneumonia Is this a current diagnosis for this admission?: Yes Plan: Most likely community-acquired, due to gram-positive and Chlamydia Streptococcus pneumonia complicated by underlying COPD/asthma and tobacco abuse. ABG 04/07/2020 shows hypercarbia and hypoxemia. Day 3 IV antibiotics. Day 3 IV azithromycin. Day 3 IV ceftriaxone. Day 3 IV steroids. Supplemental oxygen and BiPAP. Continue duo nebs, ICS, LABA, LABA, flutter valve and incentive spirometry. Plan culture 1/2 is positive for Streptococcus, pending sensitivity. Repeat blood culture. Follow-up blood culture. (2) Acute exacerbation of COPD with asthma Is this a current diagnosis for this admission?: Yes Plan: Acute exacerbated with wheezing on physical examination. Outpatient patient still smoking. Continue BiPAP, duo nebs, ICS, LABA, LABA, pulmonary toileting, incentive spirometry and flutter valve. (3) Acute respiratory failure with hypoxia and hypercapnia Is this a current diagnosis for this admission?: Yes Plan: As per #1. (4) Depression Qualifiers: Depression Type: unspecified Qualified Code(s): F32.9 - Major depressive disorder, single episode, unspecified Is this a current diagnosis for this admission?: Yes Plan: Denies any suicidal or homicidal ideation. Resume home meds. Outpatient PCP and psychiatry follow-up. (5) Hypertension Qualifiers: Hypertension type: essential hypertension Qualified Code(s): I10 - Essential (primary) hypertension Is this a current diagnosis for this admission?: Yes Plan: Euvolemic. Normotensive. Resume home meds. Outpatient PCP follow-up with adjustment of daily. IV PRN hydralazine and metoprolol. (6) Tobacco use disorder Is this a current diagnosis for this admission?: Yes Plan: Counseled on quitting. NicoDerm patch will be provided. (7) Morbid obesity Is this a current diagnosis for this admission?: Yes Plan: Diet and lifestyle modification recommended. Will obtain TSH, lipid panel and hemoglobin A1c. - Plan Summary Summary: Patient will be admitted to the medical floor where she will receive routine supportive and symptomatic cares. She was receive supplemental oxygen via BiPAP in order to maintain an adequate oxygen saturation. She will receive an aggressive pulmonary toilet utilizing nebulized, Xopenex, Atrovent, Pulmicort and Mucomyst. She will receive IV Solu-Medrol to complete a burst dose therapy protocol requiring 3 additional doses of 40 mg IV every 6 hours. She will be on a cardiac diet. She will be treated with IV antibiotics utilizing Rocephin and Zithromax. Smoking cessation is advised and counseled briefly at the bedside a nicotine replacement patch is available for the patient's use, if desired. CBCs, metabolic profiles, magnesium levels and additional laboratory and/or radiographic evaluations will be obtained as needed. - Time Time Spent with patient: 15-24 minutes Smoking Cessation Education: 3 to 10 minutes Medications reviewed and adjusted accordingly: Yes Anticipated Discharge Disposition: Home, Self Care Anticipated Discharge: within 36 hours
[2020-04-08] MEDS: AZITHROMYCIN 500 MG in DEXTROSE 5%-WATER 250 ML IV SCH (11:14)
[2020-04-08] MEDS: MELATONIN 5 MG TABLET PO PRN (21:20)
[2020-04-08] MEDS: MONTELUKAST SODIUM 10 MG TABLET PO SCH (21:21)
[2020-04-09] MEDS: HEPARIN SOD (PORCINE) 5,000 UNIT/ML 1 ML VIAL SUBCUT SCH ×3 (05:33→22:51)
[2020-04-09 07:20] LABS: HEMATOCRIT 42.1 % (36.0-47.0); MEAN CORPUSCULAR HEMOGLOBIN 30.7 pg (27.0-33.4); MEAN CORPUSCULAR HGB CONC 33.2 g/dL (32.0-36.0); MEAN CORPUSCULAR VOLUME 92 fl (80-97); PLATELET COUNT 236 10^3/uL (150-450); RED BLOOD COUNT 4.56 10^6/uL (3.72-5.28); WHITE BLOOD COUNT 10.3 10^3/uL (4.0-10.5)
[2020-04-09 07:44] LABS: ANION GAP 5 (5-19); BLOOD UREA NITROGEN 25 mg/dL (7-20); CALCIUM 8.6 mg/dL (8.4-10.2); CARBON DIOXIDE 32 mmol/L (22-30); CHLORIDE 102 mmol/L (98-107); GLUCOSE 86 mg/dL (75-110); POTASSIUM 4.5 mmol/L (3.6-5.0); TRIGLYCERIDES 142 mg/dL (<150)
[2020-04-09 07:54] LABS: DIRECT LDL 88 mg/dL (<100)
[2020-04-09] MEDS: BUDESONIDE NEB 0.5 MG/2 ML AMPUL NEB SCH ×2 (09:04→20:27)
[2020-04-09] MEDS: ACETYLCYSTEINE 20% SOLN 800 MG/4 ML VIAL.NEB NEB SCH ×2 (09:04→20:27)
[2020-04-09] MEDS: IPRATROPIUM/ALBUTEROL 0.5-2.5 MG/3 ML AMPUL NEB SCH ×3 (09:04→20:27)
[2020-04-09] MEDS: AZITHROMYCIN 500 MG in DEXTROSE 5%-WATER 250 ML IV SCH (09:38)
[2020-04-09] MEDS: CEFTRIAXONE 1 GM/D5W RTU 1 GM/50 ML RTUPB IV SCH (09:38)
[2020-04-09] MEDS: AMLODIPINE BESYLATE 5 MG TABLET PO SCH (09:39)
[2020-04-09] MEDS: LISINOPRIL 10 MG TABLET PO SCH (09:39)
[2020-04-09] MEDS: CHOLECALCIFEROL (D3) 1,000 UNIT (25 MCG) TABLET PO SCH (09:39)
[2020-04-09] MEDS: SERTRALINE HCL 50 MG TABLET PO SCH (09:39)
[2020-04-09] MEDS: FAMOTIDINE 20 MG TABLET PO SCH ×2 (09:39→22:51)
[2020-04-09] MEDS: CYANOCOBALAMIN (VITAMIN B-12) 1,000 MCG TABLET PO SCH (09:39)
[2020-04-09] MEDS: DOCUSATE SODIUM 100 MG CAPSULE PO SCH ×2 (09:40→17:03)
--- NOTE | 2020-04-09 11:17 | CDI QUERY ---
CDI Query CDI Review: Documentation in the Medical Record indicates this patient has: Height: 5 ft 3 in Weight: 106.2 kg (233.64 lbs) Calculated BMI: 41.3 kg/m2 The following is also documented in the Medical Record: Morbid obesity Is this a current diagnosis for this admission?: Yes Plan: Diet and lifestyle modification recommended. Will obtain TSH, lipid panel and hemoglobin A1c. Based on your medical judgement, can you further clarify in the Progress Notes the diagnosis associated with these findings: Morbid Obesity / BMI 41.3 kg/m2 Overweight / BMI 41.3 kg/m2 Obesity / BMI 41.3 kg/m2 Other condition (please specify) None of the above / Not applicable Thank you for your consideration. KARLY Hanson RN Clinical Seed Corn Manager Production Physician Advisor [email or web address]
--- NOTE | 2020-04-09 12:43 | PDOC PROGRESS REPORT ---
Subjective Progress Note for:: 04/09/20 Subjective:: 49 year old female who presents the emergency room with a one-day history of dyspnea. 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 Her dyspnea was worsened by exertion or activity, was accompanied by wheezing and a subjective fever, and is associated with COVID-19 exposure. She denies other associated or accompanying signs and symptoms. She admits prior similar episodes due to her asthma. She is an everyday cigarette smoker. She has not identified any additional aggravating or ameliorating factors for her dyspnea. In the emergency room she was found to have an elevated white blood count, hypoxic and hypercapnic respiratory failure on arterial blood gases and a chest x-ray revealing bibasilar pneumonia. She was treated with IV antibiotics, nebulizer therapy and intravenous Solu-Medrol as well as intravenous magnesium sulfate. She was tested for COVID-19 and blood cultures were performed. She was subsequently admitted to the hospital for further evaluation treatment 04/08/2020. Yesterday patient was noted to be having worsening shortness of breath, and ABG showed hypoxemia and hypercarbia, patient was transitioned to BiPAP, overnight she had to use BiPAP, stating that she had a rough night, this morning is still on BiPAP however does not seem to be in moderate distress, she is p.o. tolerant having normal bowel bladder movement, denies any fever, chills, nausea, vomiting, diarrhea, constipation or any urinary symptoms. 04/09/2020-no acute events in the last 24 hours. Patient is on 4 L of oxygen pulse ox is 96%. Plan is to repeat the chest x-ray today. Patient has bedside BiPAP and receiving nebulizer treatments. Cultures growing strep mitis and presently on IV Rocephin and Zithromax. Plan is to continue the present management COVID test is negative. Reason For Visit: ACUTE EXACERBATION OF COPD WITH ASTHMA,ACUTE Physical Exam Vital Signs: Temp Pulse Resp BP Pulse Ox 98.1 F 67 18 140/71 H 95 04/09/20 07:31 04/09/20 09:04 04/09/20 09:04 04/09/20 07:31 04/09/20 09:04 Pulse Oximeter Continuous Start: 04/07/20 03:57 Freq: RTQ4 Status: Active Protocol: Document 04/09/20 09:04 [facility] [place]Rec[place] 04/09/20 09:59 [facility] [id number] Pulse Oximetry Assessment Oxygen Saturation (92-100) 95 Oxygen Flow Rate (L/min) 4.5 Oxygen Delivery Method Nasal Cannula Fraction of Inspired Oxygen (FIO2) 34 Equipment Usage Equipment in Use Continuous SpO2 Machine # N 7 Intake & Output 04/08/20 04/09/20 04/10/20 06:59 06:59 06:59 Intake Total 660 550 840 Balance 660 550 840 Weight 103.9 kg 106.2 kg General appearance: PRESENT: no acute distress Head exam: PRESENT: atraumatic Eye exam: PRESENT: PERRLA Ear exam: PRESENT: normal external ear exam Mouth exam: PRESENT: neck supple Neck exam: ABSENT: carotid bruit, JVD, lymphadenopathy, thyromegaly Respiratory exam: PRESENT: decreased breath sounds, wheezes Cardiovascular exam: PRESENT: RRR. ABSENT: diastolic murmur, rubs, systolic murmur GI/Abdominal exam: PRESENT: normal bowel sounds, soft. ABSENT: distended, guarding, mass, organolmegaly, rebound, tenderness Rectal exam: PRESENT: deferred Extremities exam: PRESENT: full ROM. ABSENT: calf tenderness, clubbing, pedal edema Neurological exam: PRESENT: alert, awake, oriented to person, oriented to place, oriented to time, oriented to situation, CN II-XII grossly intact. ABSENT: motor sensory deficit Psychiatric exam: PRESENT: appropriate affect, normal mood. ABSENT: homicidal ideation, suicidal ideation Results Laboratory Results: 04/09/20 07:05 04/09/20 07:05 04/09/20 04/09/20 04/09/20 07:05 07:05 07:05 WBC 10.3 RBC 4.56 Hgb 14.0 Hct 42.1 MCV 92 MCH 30.7 MCHC 33.2 RDW 15.0 H Plt Count 236 Sodium 138.9 Potassium 4.5 Chloride 102 Carbon Dioxide 32 H Anion Gap 5 BUN 25 H Creatinine 0.75 Est GFR ( Amer) > 60 Glucose 86 Calcium 8.6 Triglycerides 142 Cholesterol 138.70 LDL Cholesterol Direct 88 VLDL Cholesterol 28.0 HDL Cholesterol 36 L TSH 4.20 04/07/20 01:25 Blood Blood Culture (PCR) - Final Streptococcus Species 04/07/20 01:25 Blood Blood Culture - Final Strep Mitis/Oralis Grp Impressions: Chest X-Ray 04/06/20 22:00 IMPRESSION: Bibasilar airspace opacities worrisome for pneumonitis copyright 2011 [employer]- All Rights Reserved Assessment and Plan - Diagnosis (1) Community acquired bilateral lower lobe pneumonia Is this a current diagnosis for this admission?: Yes Plan: Most likely community-acquired, due to gram-positive and Chlamydia Streptococcus pneumonia complicated by underlying COPD/asthma and tobacco abuse. ABG 04/07/2020 shows hypercarbia and hypoxemia. Day 3 IV antibiotics. Day 3 IV azithromycin. Day 3 IV ceftriaxone. Day 3 IV steroids. Supplemental oxygen and BiPAP. Continue duo nebs, ICS, LABA, LABA, flutter valve and incentive spirometry. Plan culture 1/2 is positive for Streptococcus, pending sensitivity. Repeat blood culture. Follow-up blood culture. 04/09/2020-patient admitted with community-acquired pneumonia chest x-ray suggestive of pneumonitis patient is presently on IV Rocephin and Zithromax. Cultures growing strep mitis. This is in 1 bottle. Patient is afebrile WBC count is normalized but still requiring 5 L of oxygen at this time. Plan is to repeat the chest x-ray today for further information. Meantime continue to use PRN BiPAP and neb treatments. (2) Acute exacerbation of COPD with asthma Is this a current diagnosis for this admission?: Yes Plan: Acute exacerbated with wheezing on physical examination. Outpatient patient still smoking. Continue BiPAP, duo nebs, ICS, LABA, LABA, pulmonary toileting, incentive spirometry and flutter valve. (3) Acute respiratory failure with hypoxia and hypercapnia Is this a current diagnosis for this admission?: Yes Plan: As per #1. 04/09-ABG from 04/07/2020 shows pH of 7.28, PCO2 56, PO2 64.8, oxygen saturation of 90% on 50% FiO2. Plan is to repeat the ABG on 5 L of oxygen today. (4) Hypertension Qualifiers: Hypertension type: essential hypertension Qualified Code(s): I10 - Essential (primary) hypertension Is this a current diagnosis for this admission?: No Plan: Euvolemic. Normotensive. Resume home meds. Outpatient PCP follow-up with adjustment of daily. IV PRN hydralazine and metoprolol. 04/09/2020-blood pressure today's 140/70. Stable. Plan is to continue the present management. (5) Morbid obesity Is this a current diagnosis for this admission?: No Plan: Diet and lifestyle modification recommended. Will obtain TSH, lipid panel and hemoglobin A1c. 04/09/2020-patient's BMI is more than 41.5, diet exercise weight loss lifestyle modifications discussed with the patient. (6) Tobacco use disorder Is this a current diagnosis for this admission?: Yes - Plan Summary Summary: Patient will be admitted to the medical floor where she will receive routine supportive and symptomatic cares. She was receive supplemental oxygen via BiPAP in order to maintain an adequate oxygen saturation. She will receive an aggressive pulmonary toilet utilizing nebulized, Xopenex, Atrovent, Pulmicort and Mucomyst. She will receive IV Solu-Medrol to complete a burst dose therapy protocol requiring 3 additional doses of 40 mg IV every 6 hours. She will be on a cardiac diet. She will be treated with IV antibiotics utilizing Rocephin and Zithromax. Smoking cessation is advised and counseled briefly at the bedside a nicotine replacement patch is available for the patient's use, if desired. CBCs, metabolic profiles, magnesium levels and additional laboratory and/or radiographic evaluations will be obtained as needed. - Time Anticipated Discharge Disposition: Home, Self Care Anticipated Discharge: within 72 hours
--- NOTE | 2020-04-09 14:18 | RADIOLOGY REPORT (SQ) ---
EXAM DESCRIPTION: CHEST 2 VIEWS IMAGES COMPLETED DATE/TIME: 04/09/2020 1:14 pm REASON FOR STUDY: pneumonitis COMPARISON: 04/06/2020 EXAM PARAMETERS: NUMBER OF VIEWS: two views TECHNIQUE: Digital Frontal and Lateral radiographic views of the chest acquired. RADIATION DOSE: NA LIMITATIONS: none FINDINGS: LUNGS AND PLEURA: Pulmonary vascular congestion. Cannot exclude patchy infiltrates in eit her lung. MEDIASTINUM AND HILAR STRUCTURES: No masses or contour abnormalities. HEART AND VASCULAR STRUCTURES: Heart size is borderline. BONES: No acute findings. HARDWARE: None in the chest. OTHER: No other significant finding. IMPRESSION: Borderline heart size and pulmonary vascular congestion but no nikita edema. Cannot excl ude airspace disease in either lower lung. Atelectasis versus pneumonia. TECHNICAL DOCUMENTATION: JOB ID: [id number] 2010 [employer]- All Rights Reserved Reading location - IP/workstation name: [email or web address]
[2020-04-09] MEDS: MELATONIN 5 MG TABLET PO PRN (22:51)
[2020-04-09] MEDS: MONTELUKAST SODIUM 10 MG TABLET PO SCH (22:51)
[2020-04-10] MEDS: HEPARIN SOD (PORCINE) 5,000 UNIT/ML 1 ML VIAL SUBCUT SCH ×3 (06:21→21:45)
[2020-04-10 06:56] LABS: HEMATOCRIT 44.6 % (36.0-47.0); HEMOGLOBIN 15.1 g/dL (12.0-15.5); MEAN CORPUSCULAR HEMOGLOBIN 30.8 pg (27.0-33.4); MEAN CORPUSCULAR HGB CONC 33.8 g/dL (32.0-36.0); MEAN CORPUSCULAR VOLUME 91 fl (80-97); PLATELET COUNT 244 10^3/uL (150-450); RED BLOOD COUNT 4.89 10^6/uL (3.72-5.28); RED CELL DISTRIBUTION WIDTH 14.6 % (11.5-14.0); WHITE BLOOD COUNT 7.7 10^3/uL (4.0-10.5)
[2020-04-10 07:17] LABS: BLOOD UREA NITROGEN 19 mg/dL (7-20); CALCIUM 9.2 mg/dL (8.4-10.2); GLUCOSE 96 mg/dL (75-110)
[2020-04-10 07:23] LABS: ANION GAP 5 (5-19); CARBON DIOXIDE 34 mmol/L (22-30); CHLORIDE 99 mmol/L (98-107)
[2020-04-10] MEDS: IPRATROPIUM/ALBUTEROL 0.5-2.5 MG/3 ML AMPUL NEB SCH ×3 (07:47→20:58)
[2020-04-10] MEDS: ACETYLCYSTEINE 20% SOLN 800 MG/4 ML VIAL.NEB NEB SCH (07:47)
[2020-04-10] MEDS: BUDESONIDE NEB 0.5 MG/2 ML AMPUL NEB SCH ×2 (07:47→20:55)
[2020-04-10] MEDS: SERTRALINE HCL 50 MG TABLET PO SCH (09:33)
[2020-04-10] MEDS: CHOLECALCIFEROL (D3) 1,000 UNIT (25 MCG) TABLET PO SCH (09:34)
[2020-04-10] MEDS: CYANOCOBALAMIN (VITAMIN B-12) 1,000 MCG TABLET PO SCH (09:34)
[2020-04-10] MEDS: FAMOTIDINE 20 MG TABLET PO SCH ×2 (09:34→21:45)
[2020-04-10] MEDS: DOCUSATE SODIUM 100 MG CAPSULE PO SCH ×2 (09:34→17:03)
[2020-04-10] MEDS: AMLODIPINE BESYLATE 5 MG TABLET PO SCH (09:34)
[2020-04-10] MEDS: CEFTRIAXONE 1 GM/D5W RTU 1 GM/50 ML RTUPB IV SCH (09:34)
[2020-04-10] MEDS: LISINOPRIL 10 MG TABLET PO SCH (09:34)
[2020-04-10] MEDS: AZITHROMYCIN 500 MG in DEXTROSE 5%-WATER 250 ML IV SCH (10:15)
--- NOTE | 2020-04-10 12:23 | PDOC PROGRESS REPORT ---
Subjective Progress Note for:: 04/10/20 Subjective:: Did not wear BiPAP last noc and feels poorly today. Reason For Visit: ACUTE EXACERBATION OF COPD WITH ASTHMA,ACUTE Physical Exam Vital Signs: Temp Pulse Resp BP Pulse Ox 97.9 F 68 12 144/81 H 92 04/10/20 08:00 04/10/20 08:00 04/10/20 08:00 04/10/20 08:00 04/10/20 08:00 Pulse Oximeter Continuous Start: 04/07/20 03:57 Freq: RTQ4 Status: Active Protocol: Document 04/10/20 07:50 [facility] (Rec: 04/10/20 08:08 [facility] [id number]) Pulse Oximetry Assessment Oxygen Saturation (92-100) 94 Oxygen Flow Rate (L/min) 4 Oxygen Delivery Method Nasal Cannula Equipment Usage Equipment in Use Continuous SpO2 Machine # 7 Intake & Output 04/09/20 04/10/20 04/11/20 06:59 06:59 06:59 Intake Total 550 1340 300 Balance 550 1340 300 Weight 106.2 kg 108 kg General appearance: PRESENT: cooperative, mild distress, morbidly obese, well- developed Head exam: PRESENT: atraumatic, normocephalic Eye exam: PRESENT: conjunctiva pink. ABSENT: scleral icterus Ear exam: PRESENT: normal external ear exam. ABSENT: bleeding, drainage Mouth exam: PRESENT: moist, tongue midline Respiratory exam: PRESENT: symmetrical, unlabored, wheezes - Bilateraly. ABSENT: accessory muscle use, rales, rhonchi, tachypnea Cardiovascular exam: PRESENT: RRR, +S1, +S2, systolic murmur - 2/6. ABSENT: bradycardia, diastolic murmur, irregular rhythm, tachycardia GI/Abdominal exam: PRESENT: normal bowel sounds, soft. ABSENT: distended, tenderness Rectal exam: PRESENT: deferred Gentrourinary exam: ABSENT: indwelling catheter Extremities exam: ABSENT: pedal edema Musculoskeletal exam: PRESENT: ambulatory, normal inspection Neurological exam: PRESENT: alert, awake, oriented to person, oriented to place, oriented to time, oriented to situation, CN II-XII grossly intact Psychiatric exam: PRESENT: normal mood. ABSENT: agitated, anxious Focused psych exam: ABSENT: delusional, paranoid, restlessness Results Laboratory Results: 04/10/20 06:26 04/10/20 06:26 04/10/20 04/10/20 06:26 06:26 WBC 7.7 RBC 4.89 Hgb 15.1 Hct 44.6 MCV 91 MCH 30.8 MCHC 33.8 RDW 14.6 H Plt Count 244 Sodium 138.0 Potassium 5.0 Chloride 99 Carbon Dioxide 34 H Anion Gap 5 BUN 19 Creatinine 0.77 Est GFR ( Amer) > 60 Glucose 96 Calcium 9.2 04/07/20 01:25 Blood Blood Culture (PCR) - Final Streptococcus Species 04/07/20 01:25 Blood Blood Culture - Final Strep Mitis/Oralis Grp Impressions: Chest X-Ray 04/09/20 00:00 IMPRESSION: Borderline heart size and pulmonary vascular congestion but no nikita edema. Cannot exclude airspace disease in either lower lung. Atelectasis versus pneumonia. Assessment and Plan - Diagnosis (1) Community acquired bilateral lower lobe pneumonia Is this a current diagnosis for this admission?: Yes Plan: Most likely community-acquired, due to gram-positive and Chlamydia Streptococcus pneumonia complicated by underlying COPD/asthma and tobacco abuse. ABG 04/07/2020 shows hypercarbia and hypoxemia. Day 3 IV antibiotics. Day 3 IV azithromycin. Day 3 IV ceftriaxone. Day 3 IV steroids. Supplemental oxygen and BiPAP. Continue duo nebs, ICS, LABA, LABA, flutter valve and incentive spirometry. Plan culture 1/2 is positive for Streptococcus, pending sensitivity. Repeat blood culture. Follow-up blood culture. 04/09/2020-patient admitted with community-acquired pneumonia chest x-ray suggestive of pneumonitis patient is presently on IV Rocephin and Zithromax. Cultures growing strep mitis. This is in 1 bottle. Patient is afebrile WBC count is normalized but still requiring 5 L of oxygen at this time. Plan is to repeat the chest x-ray today for further information. Meantime continue to use PRN BiPAP and neb treatments. 04/10- continue zithromax and rocephin. X-ray improved (2) Acute exacerbation of COPD with asthma Is this a current diagnosis for this admission?: Yes Plan: Acute exacerbated with wheezing on physical examination. Outpatient patient still smoking. Continue BiPAP, duo nebs, ICS, LABA, LABA, pulmonary toileting, incentive spirometry and flutter valve. 04/10- continue nebs and singulair. flonase and claritin added (3) Acute respiratory failure with hypoxia and hypercapnia Is this a current diagnosis for this admission?: Yes Plan: As per #1. 04/09-ABG from 04/07/2020 shows pH of 7.28, PCO2 56, PO2 64.8, oxygen saturation of 90% on 50% FiO2. Plan is to repeat the ABG on 5 L of oxygen today. 04/10- still with high PCO2. Patient needs to wear BiPAP more. Obesity hypoventilation is contributing. Overnight oximetry ordered (4) Hypertension Qualifiers: Hypertension type: essential hypertension Qualified Code(s): I10 - Essential (primary) hypertension Is this a current diagnosis for this admission?: Yes Plan: Euvolemic. Normotensive. Resume home meds. Outpatient PCP follow-up with adjustment of daily. IV PRN hydralazine and metoprolol. 04/09/2020-blood pressure today's 140/70. Stable. Plan is to continue the present management. 04/10- continue current regimen. Good BP control (5) Morbid obesity Is this a current diagnosis for this admission?: Yes Plan: Diet and lifestyle modification recommended. Will obtain TSH, lipid panel and h emoglobin A1c. 04/09/2020-patient's BMI is more than 41.5, diet exercise weight loss lifestyle modifications discussed with the patient. 04/10- this is also contributing to resp failure and overall deconditioning (6) Tobacco use disorder Is this a current diagnosis for this admission?: Yes Plan: Counseled on quitting. NicoDerm patch will be provided. (7) Depression Qualifiers: Depression Type: unspecified Qualified Code(s): F32.9 - Major depressive disorder, single episode, unspecified Is this a current diagnosis for this admission?: Yes Plan: Denies any suicidal or homicidal ideation. Resume home meds. Outpatient PCP and psychiatry follow-up. 04/10- continue sertraline - Plan Summary Summary: Patient will be admitted to the medical floor where she will receive routine supportive and symptomatic cares. She was receive supplemental oxygen via BiPAP in order to maintain an adequate oxygen saturation. She will receive an aggressive pulmonary toilet utilizing nebulized, Xopenex, Atrovent, Pulmicort and Mucomyst. She will receive IV Solu-Medrol to complete a burst dose therapy protocol requiring 3 additional doses of 40 mg IV every 6 hours. She will be on a cardiac diet. She will be treated with IV antibiotics utilizing Rocephin and Zithromax. Smoking cessation is advised and counseled briefly at the bedside a nicotine replacement patch is available for the patient's use, if desired. CBCs, metabolic profiles, magnesium levels and additional laboratory and/or radiographic evaluations will be obtained as needed. - Time Time Spent with patient: 15-24 minutes Medications reviewed and adjusted accordingly: Yes Anticipated Discharge Disposition: Home with Home Health Anticipated Discharge Timeframe: within 72 hours
[2020-04-10] MEDS: GUAIFENESIN 600 MG TABLET.SA PO SCH (21:45)
[2020-04-10] MEDS: MELATONIN 5 MG TABLET PO PRN (21:45)
[2020-04-10] MEDS: MONTELUKAST SODIUM 10 MG TABLET PO SCH (21:45)
[2020-04-10] MEDS: FLUTICASONE NASAL SPRAY 50 MCG/SPRY 120 SPRAY/16 GM NASL SCH (21:46)
[2020-04-11] MEDS: HEPARIN SOD (PORCINE) 5,000 UNIT/ML 1 ML VIAL SUBCUT SCH ×3 (06:18→22:39)
[2020-04-11] MEDS: BUDESONIDE NEB 0.5 MG/2 ML AMPUL NEB SCH ×2 (08:06→20:06)
[2020-04-11] MEDS: IPRATROPIUM/ALBUTEROL 0.5-2.5 MG/3 ML AMPUL NEB SCH ×3 (08:08→20:06)
[2020-04-11] MEDS: FLUTICASONE NASAL SPRAY 50 MCG/SPRY 120 SPRAY/16 GM NASL SCH ×2 (09:13→22:40)
[2020-04-11] MEDS: LISINOPRIL 10 MG TABLET PO SCH (09:13)
[2020-04-11] MEDS: AZITHROMYCIN 250 MG TABLET PO SCH (09:14)
[2020-04-11] MEDS: CYANOCOBALAMIN (VITAMIN B-12) 1,000 MCG TABLET PO SCH (09:14)
[2020-04-11] MEDS: GUAIFENESIN 600 MG TABLET.SA PO SCH ×2 (09:14→22:39)
[2020-04-11] MEDS: CHOLECALCIFEROL (D3) 1,000 UNIT (25 MCG) TABLET PO SCH (09:14)
[2020-04-11] MEDS: LORATADINE 10 MG TABLET PO SCH (09:14)
[2020-04-11] MEDS: SERTRALINE HCL 50 MG TABLET PO SCH (09:15)
[2020-04-11] MEDS: AMLODIPINE BESYLATE 5 MG TABLET PO SCH (09:15)
[2020-04-11] MEDS: DOCUSATE SODIUM 100 MG CAPSULE PO SCH ×2 (09:15→17:49)
[2020-04-11] MEDS: CEFTRIAXONE 1 GM/D5W RTU 1 GM/50 ML RTUPB IV SCH (09:15)
[2020-04-11] MEDS: FAMOTIDINE 20 MG TABLET PO SCH ×2 (09:15→22:39)
--- NOTE | 2020-04-11 12:06 | PDOC PROGRESS REPORT ---
Subjective Progress Note for:: 04/11/20 Subjective:: 49 year old female who presents the emergency room with a one-day history of dyspnea. 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 Her dyspnea was worsened by exertion or activity, was accompanied by wheezing and a subjective fever, and is associated with COVID-19 exposure. She denies other associated or accompanying signs and symptoms. She admits prior similar episodes due to her asthma. She is an everyday cigarette smoker. She has not identified any additional aggravating or ameliorating factors for her dyspnea. In the emergency room she was found to have an elevated white blood count, hypoxic and hypercapnic respiratory failure on arterial blood gases and a chest x-ray revealing bibasilar pneumonia. She was treated with IV antibiotics, nebulizer therapy and intravenous Solu-Medrol as well as intravenous magnesium sulfate. She was tested for COVID-19 and blood cultures were performed. She was subsequently admitted to the hospital for further evaluation treatment 04/08/2020. Yesterday patient was noted to be having worsening shortness of breath, and ABG showed hypoxemia and hypercarbia, patient was transitioned to BiPAP, overnight she had to use BiPAP, stating that she had a rough night, this morning is still on BiPAP however does not seem to be in moderate distress, she is p.o. tolerant having normal bowel bladder movement, denies any fever, chills, nausea, vomiting, diarrhea, constipation or any urinary symptoms. 04/09/2020-no acute events in the last 24 hours. Patient is on 4 L of oxygen pulse ox is 96%. Plan is to repeat the chest x-ray today. Patient has bedside BiPAP and receiving nebulizer treatments. Cultures growing strep mitis and presently on IV Rocephin and Zithromax. Plan is to continue the present management COVID test is negative. 04/11/2020-patient is comfortably in the bed communicating well on oxygen supplementation. Pulse ox is 92% 2 L with activity pulse ox dropping to the 80s. Plan is to continue the oxygen supplementation, IV antibiotic therapy at this time. Reason For Visit: ACUTE EXACERBATION OF COPD WITH ASTHMA,ACUTE Physical Exam Vital Signs: Temp Pulse Resp BP Pulse Ox 97.7 F 72 20 140/67 H 89 L 04/11/20 08:34 04/11/20 08:34 04/11/20 08:34 04/11/20 08:34 04/11/20 08:34 Pulse Oximeter Continuous Start: 04/07/20 03:57 Freq: RTQ4 Status: Active Protocol: Document 04/11/20 08:08 HCR (Rec: 04/11/20 09:25 HCR [email or web address]) Pulse Oximetry Assessment Oxygen Saturation (92-100) 91 Oxygen Flow Rate (L/min) 2.5 Oxygen Delivery Method Nasal Cannula Equipment Usage Equipment in Use Continuous SpO2 Machine # 7 Pulse Oximeter Nocturnal Start: 04/10/20 12:18 Freq: RTQ4 Status: Complete Protocol: Document 04/11/20 06:15 CMI (Rec: 04/11/20 06:15 CMI [email or web address]) Nocturnal Pulse Oximetry Equipment Usage Equipment Discontinued Continuous SpO2 Machine # 7 Intake & Output 04/10/20 04/11/20 04/12/20 06:59 06:59 06:59 Intake Total 1340 1293 120 Balance 1340 1293 120 Weight 108 kg 105.3 kg General appearance: PRESENT: no acute distress, morbidly obese Head exam: PRESENT: atraumatic Eye exam: PRESENT: PERRLA Ear exam: PRESENT: normal external ear exam Mouth exam: PRESENT: neck supple Teeth exam: PRESENT: poor dentation Neck exam: ABSENT: carotid bruit, JVD, lymphadenopathy, thyromegaly Respiratory exam: PRESENT: decreased breath sounds Cardiovascular exam: PRESENT: RRR. ABSENT: diastolic murmur, rubs, systolic murmur Pulses: PRESENT: normal dorsalis pedis pul GI/Abdominal exam: PRESENT: normal bowel sounds, soft. ABSENT: distended, guarding, mass, organolmegaly, rebound, tenderness Rectal exam: PRESENT: deferred Extremities exam: PRESENT: full ROM. ABSENT: calf tenderness, clubbing, pedal edema Neurological exam: PRESENT: alert, awake, oriented to person, oriented to place, oriented to time, oriented to situation, CN II-XII grossly intact. ABSENT: motor sensory deficit Psychiatric exam: PRESENT: appropriate affect, normal mood. ABSENT: homicidal ideation, suicidal ideation Results Laboratory Results: 04/10/20 06:26 04/10/20 06:26 Impressions: Chest X-Ray 04/09/20 00:00 IMPRESSION: Borderline heart size and pulmonary vascular congestion but no fra nk edema. Cannot exclude airspace disease in either lower lung. Atelectasis versus pneumonia. Assessment and Plan - Diagnosis (1) Community acquired bilateral lower lobe pneumonia Is this a current diagnosis for this admission?: Yes Plan: Most likely community-acquired, due to gram-positive and Chlamydia Streptococcus pneumonia complicated by underlying COPD/asthma and tobacco abuse. ABG 04/07/2020 shows hypercarbia and hypoxemia. Day 3 IV antibiotics. Day 3 IV azithromycin. Day 3 IV ceftriaxone. Day 3 IV steroids. Supplemental oxygen and BiPAP. Continue duo nebs, ICS, LABA, LABA, flutter valve and incentive spirometry. Plan culture /2 is positive for Streptococcus, pending sensitivity. Repeat blood culture. Follow-up blood culture. 04/09/2020-patient admitted with community-acquired pneumonia chest x-ray suggestive of pneumonitis patient is presently on IV Rocephin and Zithromax. Cultures growing strep mitis. This is in 1 bottle. Patient is afebrile WBC count is normalized but still requiring 5 L of oxygen at this time. Plan is to repeat the chest x-ray today for further information. Meantime continue to use PRN BiPAP and neb treatments. 04/10- continue zithromax and rocephin. X-ray improved [id number] chest x-ray shows improvement. Plan is to continue IV Rocephin and Zithromax at this time. Pulse ox 92% on 2 L this morning. Improving. (2) Acute exacerbation of COPD with asthma Is this a current diagnosis for this admission?: No Plan: Acute exacerbated with wheezing on physical examination. Outpatient patient still smoking. Continue BiPAP, duo nebs, ICS, LABA, LABA, pulmonary toileting, incentive spirometry and flutter valve. 04/10- continue nebs and singulair. flonase and claritin added (3) Acute respiratory failure with hypoxia and hypercapnia Is this a current diagnosis for this admission?: Yes Plan: As per #1. 04/09-ABG from 04/07/2020 shows pH of 7.28, PCO2 56, PO2 64.8, oxygen saturation of 90% on 50% FiO2. Plan is to repeat the ABG on 5 L of oxygen today. 04/10- still with high PCO2. Patient needs to wear BiPAP more. Obesity hypoventilation is contributing. Overnight oximetry ordered 04/11/2020-patient is still having the shortness of breath. Also ox is 92% on 2 L. Patient may qualify for home oxygen. (4) Hypertension Qualifiers: Hypertension type: essential hypertension Qualified Code(s): I10 - Es sential (primary) hypertension Is this a current diagnosis for this admission?: Yes Plan: Euvolemic. Normotensive. Resume home meds. Outpatient PCP follow-up with adjustment of daily. IV PRN hydralazine and metoprolol. 04/09/2020-blood pressure today's 140/70. Stable. Plan is to continue the present management. 04/10- continue current regimen. Good BP control 04/11/2020-blood pressure is 114/61 stable. Plan is to continue the present management at this time. Patient is on amlodipine 5 mg p.o. daily, lisinopril 30 mg p.o. daily and IV hydralazine on as needed basis. (5) Morbid obesity Is this a current diagnosis for this admission?: No Plan: Diet and lifestyle modification recommended. Will obtain TSH, lipid panel and hemoglobin A1c. 04/09/2020-patient's BMI is more than 41.5, diet exercise weight loss lifestyle modifications discussed with the patient. 04/10- this is also contributing to resp failure and overall deconditioning (6) Tobacco use disorder Is this a current diagnosis for this admission?: No Plan: Counseled on quitting. NicoDerm patch will be provided. - Plan Summary Summary: Patient will be admitted to the medical floor where she will receive routine supportive and symptomatic cares. She was receive supplemental oxygen via BiPAP in order to maintain an adequate oxygen saturation. She will receive an aggressive pulmonary toilet utilizing nebulized, Xopenex, Atrovent, Pulmicort and Mucomyst. She will receive IV Solu-Medrol to complete a burst dose therapy protocol requiring 3 additional doses of 40 mg IV every 6 hours. She will be on a cardiac diet. She will be treated with IV antibiotics utilizing Rocephin and Zithromax. Smoking cessation is advised and counseled briefly at the bedside a nicotine replacement patch is available for the patient's use, if desired. CBCs, metabolic profiles, magnesium levels and additional laboratory and/or radiographic evaluations will be obtained as needed. - Time Anticipated Discharge Disposition: Home, Self Care Anticipated Discharge Timeframe: within 48 hours
[2020-04-11] MEDS: MELATONIN 5 MG TABLET PO PRN (22:39)
[2020-04-11] MEDS: MONTELUKAST SODIUM 10 MG TABLET PO SCH (22:39)
[2020-04-12 06:06] LABS: ABSOLUTE BASOPHILS # (AUTO) 0.1 10^3/uL (0.0-0.2); ABSOLUTE EOSINOPHILS # (AUTO) 0.3 10^3/uL (0.0-0.6); ABSOLUTE LYMPHOCYTES (AUTO) 1.9 10^3/uL (0.5-4.7); ABSOLUTE MONOCYTES (AUTO) 0.7 10^3/uL (0.1-1.4); ABSOLUTE NEUT (AUTO) 5.5 10^3/uL (1.7-8.2); BASOPHILS % (AUTO) 0.9 % (0-2); EOSINOPHILS % (AUTO) 3.6 % (0-6); LYMPHOCYTES % (AUTO) 21.9 % (13-45); MEAN CORPUSCULAR HEMOGLOBIN 31.2 pg (27.0-33.4); MEAN CORPUSCULAR VOLUME 92 fl (80-97); MONOCYTES % (AUTO) 8.2 % (3-13); PLATELET COUNT 239 10^3/uL (150-450); RED BLOOD COUNT 4.81 10^6/uL (3.72-5.28); RED CELL DISTRIBUTION WIDTH 14.3 % (11.5-14.0); SEGMENTED NEUTROPHILS % (AUTO) 65.4 % (42-78); TOTAL CELLS COUNTED % (AUTO) 100 %; WHITE BLOOD COUNT 8.5 10^3/uL (4.0-10.5)
[2020-04-12 06:32] LABS: ALBUMIN 3.8 g/dL (3.5-5.0); ALKALINE PHOSPHATASE 59 U/L (38-126); ASPARTATE AMINO TRANSFERASE 18 U/L (14-36); BILIRUBIN,TOTAL 0.3 mg/dL (0.2-1.3); BLOOD UREA NITROGEN 19 mg/dL (7-20); CALCIUM 8.9 mg/dL (8.4-10.2); CARBON DIOXIDE 32 mmol/L (22-30); GLUCOSE 109 mg/dL (75-110); POTASSIUM 4.4 mmol/L (3.6-5.0); TOTAL PROTEIN 6.8 g/dL (6.3-8.2)
[2020-04-12 06:38] LABS: ANION GAP 5 (5-19); CHLORIDE 100 mmol/L (98-107)
[2020-04-12] MEDS: HEPARIN SOD (PORCINE) 5,000 UNIT/ML 1 ML VIAL SUBCUT SCH ×3 (07:24→21:48)
[2020-04-12] MEDS: BUDESONIDE NEB 0.5 MG/2 ML AMPUL NEB SCH ×2 (08:20→20:04)
[2020-04-12] MEDS: IPRATROPIUM/ALBUTEROL 0.5-2.5 MG/3 ML AMPUL NEB SCH ×3 (08:20→20:04)
[2020-04-12] MEDS: LORATADINE 10 MG TABLET PO SCH (09:57)
[2020-04-12] MEDS: GUAIFENESIN 600 MG TABLET.SA PO SCH ×2 (09:57→21:48)
[2020-04-12] MEDS: CYANOCOBALAMIN (VITAMIN B-12) 1,000 MCG TABLET PO SCH (09:57)
[2020-04-12] MEDS: DOCUSATE SODIUM 100 MG CAPSULE PO SCH ×2 (09:57→17:25)
[2020-04-12] MEDS: AZITHROMYCIN 250 MG TABLET PO SCH (09:57)
[2020-04-12] MEDS: FLUTICASONE NASAL SPRAY 50 MCG/SPRY 120 SPRAY/16 GM NASL SCH ×2 (09:57→21:47)
[2020-04-12] MEDS: AMLODIPINE BESYLATE 5 MG TABLET PO SCH (09:57)
[2020-04-12] MEDS: FAMOTIDINE 20 MG TABLET PO SCH ×2 (09:57→21:48)
[2020-04-12] MEDS: SERTRALINE HCL 50 MG TABLET PO SCH (09:58)
[2020-04-12] MEDS: LISINOPRIL 10 MG TABLET PO SCH (09:58)
[2020-04-12] MEDS: CEFTRIAXONE 1 GM/D5W RTU 1 GM/50 ML RTUPB IV SCH ×2 (09:58→10:11)
[2020-04-12] MEDS: CHOLECALCIFEROL (D3) 1,000 UNIT (25 MCG) TABLET PO SCH (09:58)
[2020-04-12] MEDS: PREDNISONE 20 MG TABLET PO SCH (12:19)
[2020-04-12] MEDS: LEVOFLOXACIN 750 MG TABLET PO SCH (12:19)
[2020-04-12] MEDS: FLUTICASONE/UMECLIDIN/VILANTER 100-62.5-25 MCG/DOSE IH SCH (15:01)
--- NOTE | 2020-04-12 16:24 | PDOC PROGRESS REPORT ---
Subjective Progress Note for:: 04/12/20 Subjective:: KAITLIN SHAFER is a 49 year old female who presents the emergency room with a one-day history of dyspnea. 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 Her dyspnea was worsened by exertion or activity, was accompanied by wheezing and a subjective fever, and is associated with COVID-19 exposure. She denies other associated or accompanying signs and symptoms. She admits prior similar episodes due to her asthma. She is an everyday cigarette smoker. She has not identified any additional aggravating or ameliorating factors for her dyspnea. In the emergency room she was found to have an elevated white blood count, hypoxic and hypercapnic respiratory failure on arterial blood gases and a chest x-ray revealing bibasilar pneumonia. She was treated with IV antibiotics, nebulizer therapy and intravenous Solu-Medrol as well as intravenous magnesium sulfate. She was tested for COVID-19 and blood cultures were performed. She was subsequently admitted to the hospital for further evaluation treatment 04/12/2020. No acute events overnight. Unfortunately patient still having wheezing on physical examination and dependent on supplemental sputum otherwise denies any fever, chills, nausea, vomiting, diarrhea, constipation or any urinary symptoms. Reason For Visit: ACUTE EXACERBATION OF COPD WITH ASTHMA,ACUTE Physical Exam Vital Signs: Temp Pulse Resp BP Pulse Ox 98.0 F 71 17 134/89 H 96 04/12/20 14:56 04/12/20 14:56 04/12/20 14:56 04/12/20 14:56 04/12/20 14:56 Pulse Oximeter Continuous Start: 04/07/20 03:57 Freq: RTQ4 Status: Active Protocol: Document 04/12/20 13:43 HCR (Rec: 04/12/20 14:04 HCR [email or web address]) Pulse Oximetry Assessment Oxygen Saturation (92-100) 94 Oxygen Flow Rate (L/min) 2 Oxygen Delivery Method Nasal Cannula Equipment Usage Equipment in Use Continuous SpO2 Machine # 7 Pulse Oximeter Nocturnal Start: 04/10/20 12:18 Freq: RTQ4 Status: Complete Protocol: Document 04/11/20 06:15 CMI (Rec: 04/11/20 06:15 CMI [email or web address]) Nocturnal Pulse Oximetry Equipment Usage Equipment Discontinued Continuous SpO2 Machine # 7 Intake & Output 04/11/20 04/12/20 04/13/20 06:59 06:59 06:59 Intake Total 1293 440 550 Balance 1293 440 550 Weight 105.3 kg 105.3 kg General appearance: PRESENT: no acute distress, obese, well-developed, well-n ourished Head exam: PRESENT: atraumatic, normocephalic Neck exam: ABSENT: carotid bruit, JVD, lymphadenopathy, thyromegaly Respiratory exam: PRESENT: decreased breath sounds, prolonged expiratory phas, symmetrical, wheezes. ABSENT: rales, rhonchi Cardiovascular exam: PRESENT: RRR. ABSENT: diastolic murmur, rubs, systolic murmur GI/Abdominal exam: PRESENT: normal bowel sounds, soft. ABSENT: distended, guarding, mass, organolmegaly, rebound, tenderness Neurological exam: PRESENT: alert, awake, oriented to person, oriented to place, oriented to time, oriented to situation, CN II-XII grossly intact. ABSENT: motor sensory deficit Results Laboratory Results: 04/12/20 05:45 04/12/20 05:45 04/12/20 04/12/20 05:45 05:45 WBC 8.5 RBC 4.81 Hgb 15.0 Hct 44.0 MCV 92 MCH 31.2 MCHC 34.0 RDW 14.3 H Plt Count 239 Seg Neutrophils % 65.4 Sodium 137.1 Potassium 4.4 Chloride 100 Carbon Dioxide 32 H Anion Gap 5 BUN 19 Creatinine 0.67 Est GFR ( Amer) > 60 Glucose 109 Calcium 8.9 Magnesium 2.2 Total Bilirubin 0.3 AST 18 Alkaline Phosphatase 59 Total Protein 6.8 Albumin 3.8 04/07/20 03:08 Blood Blood Culture - Final NO GROWTH IN 5 DAYS Impressions: Chest X-Ray 04/09/20 00:00 IMPRESSION: Borderline heart size and pulmonary vascular congestion but no nikita edema. Cannot exclude airspace disease in either lower lung. Atelectasis versus pneumonia. Assessment and Plan - Diagnosis (1) Community acquired bilateral lower lobe pneumonia Is this a current diagnosis for this admission?: Yes Plan: Most likely community-acquired, due to to coccus species commplicated by underlying COPD/asthma and tobacco abuse. COVID-19 serology negative. ABG 04/07/2020 shows hypercarbia and hypoxemia. Day 7 IV antibiotics. Received 6 days of IV azithromycin. Received 6 days of IV ceftriaxone. Patient was still SPO2 dependent and has wheezing on physical examination. We will switch to p.o. levofloxacin and p.o. steroids. Continue supplemental oxygen and BiPAP. Continue duo nebs, ICS, LABA, LABA, f lutter valve and incentive spirometry. (2) Acute exacerbation of COPD with asthma Is this a current diagnosis for this admission?: No Plan: Acute exacerbated with wheezing on physical examination. Outpatient patient still smoking. Continue BiPAP, duo nebs, ICS, LABA, LABA, pulmonary toileting, incentive spirometry and flutter valve. (3) Acute respiratory failure with hypoxia and hypercapnia Is this a current diagnosis for this admission?: Yes Plan: As per #1. (4) Depression Qualifiers: Depression Type: unspecified Qualified Code(s): F32.9 - Major depressive disorder, single episode, unspecified Is this a current diagnosis for this admission?: Yes Plan: Denies any suicidal or homicidal ideation. Resume home meds. Outpatient PCP and psychiatry follow-up. (5) Hypertension Qualifiers: Hypertension type: essential hypertension Qualified Code(s): I10 - E ssential (primary) hypertension Is this a current diagnosis for this admission?: Yes Plan: Euvolemic. Normotensive. Resume home meds. Outpatient PCP follow-up with adjustment of daily. IV PRN hydralazine and metoprolol. Weight loss recommended an outpatient nocturnal polysomnography recommended. (6) Tobacco use disorder Is this a current diagnosis for this admission?: Yes Plan: Counseled on quitting. NicoDerm patch will be provided. (7) Morbid obesity Is this a current diagnosis for this admission?: Yes Plan: BMI 41.1. Diet and lifestyle modification recommended. Hemoglobin A1c 5.7. Lipid panel WNL. TSH WNL. (8) Obstructive sleep apnea Is this a current diagnosis for this admission?: Yes Plan: ABG positive for hypercarbia and hypoxemia. Patient reporting great improvement of her daily fatigue and sleepiness since been using BiPAP while inpatient. Patient will greatly benefit from weight loss outpatient proximal nocturnal polysomnography. Unfortunately patient does not have insurance and may not be able to get outpatient polysomnography. We will make a appointment with Dr. Maya and consult discharge planning for possible help. - Time Time Spent with patient: 25-34 minutes Smoking Cessation Education: 3 to 10 minutes Medications reviewed and adjusted accordingly: Yes Anticipated Discharge Disposition: Home, Self Care Anticipated Discharge Timeframe: within 24 hours
[2020-04-12] MEDS: MELATONIN 5 MG TABLET PO PRN (21:48)
[2020-04-12] MEDS: MONTELUKAST SODIUM 10 MG TABLET PO SCH (21:48)
[2020-04-13] MEDS: BUDESONIDE NEB 0.5 MG/2 ML AMPUL NEB SCH ×2 (08:07→20:10)
[2020-04-13] MEDS: IPRATROPIUM/ALBUTEROL 0.5-2.5 MG/3 ML AMPUL NEB SCH ×3 (08:07→20:10)
[2020-04-13] MEDS: FLUTICASONE NASAL SPRAY 50 MCG/SPRY 120 SPRAY/16 GM NASL SCH ×2 (10:00→21:57)
[2020-04-13] MEDS: SERTRALINE HCL 50 MG TABLET PO SCH (10:01)
[2020-04-13] MEDS: FLUTICASONE/UMECLIDIN/VILANTER 100-62.5-25 MCG/DOSE IH SCH (10:01)
[2020-04-13] MEDS: LORATADINE 10 MG TABLET PO SCH (10:01)
[2020-04-13] MEDS: GUAIFENESIN 600 MG TABLET.SA PO SCH ×2 (10:01→21:58)
[2020-04-13] MEDS: CHOLECALCIFEROL (D3) 1,000 UNIT (25 MCG) TABLET PO SCH (10:01)
[2020-04-13] MEDS: FAMOTIDINE 20 MG TABLET PO SCH ×2 (10:02→21:58)
[2020-04-13] MEDS: PREDNISONE 20 MG TABLET PO SCH (10:02)
[2020-04-13] MEDS: AMLODIPINE BESYLATE 5 MG TABLET PO SCH (10:02)
[2020-04-13] MEDS: LEVOFLOXACIN 750 MG TABLET PO SCH (10:02)
[2020-04-13] MEDS: CYANOCOBALAMIN (VITAMIN B-12) 1,000 MCG TABLET PO SCH (10:02)
[2020-04-13] MEDS: LISINOPRIL 10 MG TABLET PO SCH (10:02)
[2020-04-13] MEDS: DOCUSATE SODIUM 100 MG CAPSULE PO SCH ×2 (10:02→17:50)
[2020-04-13] MEDS: HEPARIN SOD (PORCINE) 5,000 UNIT/ML 1 ML VIAL SUBCUT SCH ×3 (10:02→21:58)
--- NOTE | 2020-04-13 13:59 | PDOC PROGRESS REPORT ---
Subjective Progress Note for:: 04/13/20 Subjective:: KAITLIN SHAFER is a 49 year old female who presents the emergency room with a one-day history of dyspnea. 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 Her dyspnea was worsened by exertion or activity, was accompanied by wheezing and a subjective fever, and is associated with COVID-19 exposure. She denies other associated or accompanying signs and symptoms. She admits prior similar episodes due to her asthma. She is an everyday cigarette smoker. She has not identified any additional aggravating or ameliorating factors for her dyspnea. In the emergency room she was found to have an elevated white blood count, hypoxic and hypercapnic respiratory failure on arterial blood gases and a chest x-ray revealing bibasilar pneumonia. She was treated with IV antibiotics, nebulizer therapy and intravenous Solu-Medrol as well as intravenous magnesium sulfate. She was tested for COVID-19 and blood cultures were performed. She was subsequently admitted to the hospital for further evaluation treatment 04/12/2020. No acute events overnight. Unfortunately patient still having wheezing on physical examination and dependent on supplemental sputum otherwise denies any fever, chills, nausea, vomiting, diarrhea, constipation or any urinary symptoms. 04/13/2020. No acute events overnight. Reporting mild improvement of respiratory symptoms, use BiPAP overnight, has been using incentive spirometry and flutter valve, still on 2 L nasal cannula, denies any fever, chills, nausea, vomiting, diarrhea, constipation or any urinary symptoms. Reason For Visit: ACUTE EXACERBATION OF COPD WITH ASTHMA,ACUTE Physical Exam Vital Signs: Temp Pulse Resp BP Pulse Ox 97.2 F 68 16 110/58 L 96 04/13/20 11:06 04/13/20 11:06 04/13/20 11:06 04/13/20 11:06 04/13/20 11:06 Pulse Oximeter Continuous Start: 04/07/20 03:57 Freq: RTQ4 Status: Active Protocol: Document 04/13/20 08:12 J (Rec: 04/13/20 08:27 J [email or web address]) Pulse Oximetry Assessment Oxygen Saturation (92-100) 92 Oxygen Flow Rate (L/min) 2 Oxygen Delivery Method Nasal Cannula Equipment Usage Equipment in Use Continuous SpO2 Machine # 7 Pulse Oximeter Nocturnal Start: 04/10/20 12:18 Freq: RTQ4 Status: Complete Protocol: Document 04/11/20 06:15 CMI (Rec: 04/11/20 06:15 CMI [email or web address]) Nocturnal Pulse Oximetry Equipment Usage Equipment Discontinued Continuous SpO2 Machine # 7 Intake & Output 04/12/20 04/13/20 04/14/20 06:59 06:59 06:59 Intake Total 440 1030 Balance 440 1030 Weight 105.3 kg 104.1 kg General appearance: PRESENT: no acute distress, obese, well-developed, well- nourished Head exam: PRESENT: atraumatic, normocephalic Respiratory exam: PRESENT: decreased breath sounds, prolonged expiratory phas, wheezes. ABSENT: rales, rhonchi Cardiovascular exam: PRESENT: diastolic murmur, RRR. ABSENT: rubs, systolic murmur GI/Abdominal exam: PRESENT: normal bowel sounds, soft. ABSENT: distended, guarding, mass, organolmegaly, rebound, tenderness Neurological exam: PRESENT: alert, awake, oriented to person, oriented to place, oriented to time, oriented to situation, CN II-XII grossly intact. ABSENT: motor sensory deficit Results Laboratory Results: 04/12/20 05:45 04/12/20 05:45 04/13/20 08:35 NT-Pro-B Natriuret Pep 29 Impressions: Chest X-Ray 04/09/20 00:00 IMPRESSION: Borderline heart size and pulmonary vascular congestion but no nikita edema. Cannot exclude airspace disease in either lower lung. Atelectasis versus pneumonia. Assessment and Plan - Diagnosis (1) Community acquired bilateral lower lobe pneumonia Is this a current diagnosis for this admission?: Yes Plan: Most likely community-acquired, due to to coccus species commplicated by underlying COPD/asthma and tobacco abuse. COVID-19 serology negative. ABG 04/07/2020 shows hypercarbia and hypoxemia. Day 8 IV antibiotics. Day 2 p.o. levofloxacin. Received 6 days of IV azithromycin. Received 6 days of IV ceftriaxone. Patient was still SPO2 dependent and has wheezing on physical examination. We will switch to p.o. levofloxacin and p.o. steroids. Continue supplemental oxygen and BiPAP. Continue duo nebs, ICS, LABA, LABA, flutter valve and incentive spirometry. (2) Acute exacerbation of COPD with asthma Is this a current diagnosis for this admission?: No Plan: Acute exacerbated with wheezing on physical examination. Outpatient patient still smoking. Continue BiPAP, duo nebs, ICS, LABA, LABA, pulmonary toileting, incentive spirometry and flutter valve. (3) Acute respiratory failure with hypoxia and hypercapnia Is this a current diagnosis for this admission?: Yes Plan: As per #1. (4) Depression Qualifiers: Depression Type: unspecified Qualified Code(s): F32.9 - Major depressive disorder, single episode, unspecified Is this a current diagnosis for this admission?: Yes Plan: Denies any suicidal or homicidal ideation. Resume home meds. Outpatient PCP and psychiatry follow-up. (5) Hypertension Qualifiers: Hypertension type: essential hypertension Qualified Code(s): I10 - Essential (primary) hypertension Is this a current diagnosis for this admission?: Yes Plan: Euvolemic. Normotensive. Resume home meds. Outpatient PCP follow-up with adjustment of daily. IV PRN hydralazine and metoprolol. Weight loss recommended an outpatient nocturnal polysomnography recommended. (6) Tobacco use disorder Is this a current diagnosis for this admission?: Yes Plan: Counseled on quitting. NicoDerm patch will be provided. (7) Morbid obesity Is this a current diagnosis for this admission?: Yes Plan: BMI 41.1. Diet and lifestyle modification recommended. Hemoglobin A1c 5.7. Lipid panel WNL. TSH WNL. (8) Obstructive sleep apnea Is this a current diagnosis for this admission?: Yes Plan: ABG positive for hypercarbia and hypoxemia. Patient reporting great improvement of her daily fatigue and sleepiness since been using BiPAP while inpatient. Patient will greatly benefit from weight loss outpatient proximal nocturnal polysomnography. Unfortunately patient does not have insurance and may not be able to get outpatient polysomnography. We will make a appointment with Dr. Maya and consult discharge planning for possible help. (9) Heart murmur Is this a current diagnosis for this admission?: Yes Plan: Diastolic murmur on physical examination. Denies any history of CAD, palpitation, rheumatic heart disease, lightheadedness, syncope or presyncope. TSH WNL, proBNP WNL, d-dimer WNL. Will get 2D echo for further evaluation. - Time Time Spent with patient: 15-24 minutes Smoking Cessation Education: 3 to 10 minutes Medications reviewed and adjusted accordingly: Yes Anticipated Discharge Disposition: Home, Self Care Anticipated Discharge Timeframe: within 24 hours
[2020-04-13] MEDS: MELATONIN 5 MG TABLET PO PRN (21:58)
[2020-04-13] MEDS: MONTELUKAST SODIUM 10 MG TABLET PO SCH (21:58)
[2020-04-14] MEDS: HEPARIN SOD (PORCINE) 5,000 UNIT/ML 1 ML VIAL SUBCUT SCH ×3 (06:41→22:22)
[2020-04-14] MEDS: IPRATROPIUM/ALBUTEROL 0.5-2.5 MG/3 ML AMPUL NEB SCH ×3 (08:24→20:05)
[2020-04-14] MEDS: BUDESONIDE NEB 0.5 MG/2 ML AMPUL NEB SCH ×2 (08:24→20:05)
[2020-04-14] MEDS: CHOLECALCIFEROL (D3) 1,000 UNIT (25 MCG) TABLET PO SCH (10:39)
[2020-04-14] MEDS: FAMOTIDINE 20 MG TABLET PO SCH ×2 (10:40→22:22)
[2020-04-14] MEDS: PREDNISONE 20 MG TABLET PO SCH (10:40)
[2020-04-14] MEDS: LORATADINE 10 MG TABLET PO SCH (10:40)
[2020-04-14] MEDS: CYANOCOBALAMIN (VITAMIN B-12) 1,000 MCG TABLET PO SCH (10:40)
[2020-04-14] MEDS: LISINOPRIL 10 MG TABLET PO SCH (10:40)
[2020-04-14] MEDS: SERTRALINE HCL 50 MG TABLET PO SCH (10:40)
[2020-04-14] MEDS: AMLODIPINE BESYLATE 5 MG TABLET PO SCH (10:41)
[2020-04-14] MEDS: LEVOFLOXACIN 750 MG TABLET PO SCH (10:41)
[2020-04-14] MEDS: GUAIFENESIN 600 MG TABLET.SA PO SCH ×2 (10:41→22:22)
[2020-04-14] MEDS: FLUTICASONE NASAL SPRAY 50 MCG/SPRY 120 SPRAY/16 GM NASL SCH ×2 (10:41→22:23)
[2020-04-14] MEDS: DOCUSATE SODIUM 100 MG CAPSULE PO SCH ×2 (10:42→18:24)
--- NOTE | 2020-04-14 11:13 | PDOC PROGRESS REPORT ---
Subjective Progress Note for:: 04/14/20 Subjective:: KAITLIN SHAFER is a 49 year old female who presents the emergency room with a one-day history of dyspnea. 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 Her dyspnea was worsened by exertion or activity, was accompanied by wheezing and a subjective fever, and is associated with COVID-19 exposure. She denies other associated or accompanying signs and symptoms. She admits prior similar episodes due to her asthma. She is an everyday cigarette smoker. She has not identified any additional aggravating or ameliorating factors for her dyspnea. In the emergency room she was found to have an elevated white blood count, hypoxic and hypercapnic respiratory failure on arterial blood gases and a chest x-ray revealing bibasilar pneumonia. She was treated with IV antibiotics, nebulizer therapy and intravenous Solu-Medrol as well as intravenous magnesium sulfate. She was tested for COVID-19 and blood cultures were performed. She was subsequently admitted to the hospital for further evaluation treatment 04/12/2020. No acute events overnight. Unfortunately patient still having wheezing on physical examination and dependent on supplemental sputum otherwise denies any fever, chills, nausea, vomiting, diarrhea, constipation or any urinary symptoms. 04/13/2020. No acute events overnight. Reporting mild improvement of respiratory symptoms, use BiPAP overnight, has been using incentive spirometry and flutter valve, still on 2 L nasal cannula, denies any fever, chills, nausea, vomiting, diarrhea, constipation or any urinary symptoms. 04/14/2020. No acute events overnight. Patient reporting improvement of respiratory symptoms however still gets winded upon exertion, uses BiPAP overnight, denies any fever, chills, nausea, vomiting, diarrhea, constipation or any urinary symptoms. Possible discharge home with home O2. Reason For Visit: ACUTE EXACERBATION OF COPD WITH ASTHMA,ACUTE Physical Exam Vital Signs: Temp Pulse Resp BP Pulse Ox 97.4 F 74 18 123/68 96 04/14/20 07:41 04/14/20 08:26 04/14/20 08:26 04/14/20 07:41 04/14/20 08:26 Pulse Oximeter Continuous Start: 04/07/20 03:57 Freq: RTQ4 Status: Active Protocol: Document 04/14/20 08:26 JDR (Rec: 04/14/20 08:42 JDR [id number]) Pulse Oximetry Assessment Oxygen Saturation (92-100) 96 Oxygen Flow Rate (L/min) 2 Oxygen Delivery Method Nasal Cannula Equipment Usage Equipment in Use Continuous SpO2 Machine # 7 Pulse Oximeter Nocturnal Start: 04/10/20 12:18 Freq: RTQ4 Status: Complete Protocol: Document 04/11/20 06:15 CMI (Rec: 04/11/20 06:15 CMI [id number]) Nocturnal Pulse Oximetry Equipment Usage Equipment Discontinued Continuous SpO2 Machine # 7 Intake & Output 04/13/20 04/14/20 04/15/20 06:59 06:59 06:59 Intake Total 1030 Balance 1030 Weight 104.1 kg 105.1 kg General appearance: PRESENT: morbidly obese Head exam: PRESENT: atraumatic, normocephalic Respiratory exam: PRESENT: prolonged expiratory phas, wheezes. ABSENT: rales, rhonchi Cardiovascular exam: PRESENT: RRR. ABSENT: diastolic murmur, rubs, systolic murmur GI/Abdominal exam: PRESENT: normal bowel sounds, soft. ABSENT: distended, guarding, mass, organolmegaly, rebound, tenderness Neurological exam: PRESENT: alert, awake, oriented to person, oriented to place, oriented to time, oriented to situation, CN II-XII grossly intact. ABSENT: motor sensory deficit Results Laboratory Results: 04/12/20 05:45 04/12/20 05:45 04/13/20 08:35 NT-Pro-B Natriuret Pep 29 Impressions: Chest X-Ray 04/09/20 00:00 IMPRESSION: Borderline heart size and pulmonary vascular congestion but no nikita edema. Cannot exclude airspace disease in either lower lung. Atelectasis versus pneumonia. Assessment and Plan - Diagnosis (1) Community acquired bilateral lower lobe pneumonia Is this a current diagnosis for this admission?: Yes Plan: Most likely community-acquired, due to to coccus species commplicated by u nderlying COPD/asthma and tobacco abuse. COVID-19 serology negative. ABG 04/07/2020 shows hypercarbia and hypoxemia. Day 9 IV antibiotics. Day 3 p.o. levofloxacin. Received 6 days of IV azithromycin. Received 6 days of IV ceftriaxone. Patient was still SPO2 dependent and has wheezing on physical examination. We will switch to p.o. levofloxacin and p.o. steroids. Continue supplemental oxygen and BiPAP. Continue duo nebs, ICS, LABA, LABA, flutter valve and incentive spirometry. (2) Acute exacerbation of COPD with asthma Is this a current diagnosis for this admission?: No Plan: Acute exacerbated with wheezing on physical examination. Outpatient patient still smoking. Continue BiPAP, duo nebs, ICS, LABA, LABA, pulmonary toileting, incentive spirometry and flutter valve. (3) Acute respiratory failure with hypoxia and hypercapnia Is this a current diagnosis for this admission?: Yes Plan: As per #1. (4) Depression Qualifiers: Depression Type: unspecified Qualified Code(s): F32.9 - Major depressive disorder, single episode, unspecified Is this a current diagnosis for this admission?: Yes Plan: Denies any suicidal or homicidal ideation. Resume home meds. Outpatient PCP and psychiatry follow-up. (5) Hypertension Qualifiers: Hypertension type: essential hypertension Qualified Code(s): I10 - Essential (primary) hypertension Is this a current diagnosis for this admission?: Yes Plan: Euvolemic. Normotensive. Resume home meds. Outpatient PCP follow-up with adjustment of daily. IV PRN hydralazine and metoprolol. Weight loss recommended an outpatient nocturnal polysomnography recommended. (6) Tobacco use disorder Is this a current diagnosis for this admission?: Yes Plan: Counseled on quitting. NicoDerm patch will be provided. (7) Morbid obesity Is this a current diagnosis for this admission?: Yes Plan: BMI 41.1. Diet and lifestyle modification recommended. Hemoglobin A1c 5.7. Lipid panel WNL. TSH WNL. (8) Obstructive sleep apnea Is this a current diagnosis for this admission?: Yes Plan: ABG positive for hypercarbia and hypoxemia. Patient reporting great improvement of her daily fatigue and sleepiness since been using BiPAP while inpatient. Patient will greatly benefit from weight loss outpatient proximal nocturnal polysomnography. Need to be discharged on supplemental O2 pending nocturnal polysomnography and CPAP obtainment. Unfortunately patient does not have insurance and may not be able to get outpatient polysomnography. We will make a appointment with Dr. Maya and consult discharge planning for possible help. (9) Heart murmur Is this a current diagnosis for this admission?: Yes Plan: Diastolic murmur on physical examination. Dyspnea on exertion and hypoxia. proBNP TSH, d-dimer WNL. Denies any history of CAD, palpitation, rheumatic heart disease, lightheadedness, syncope or presyncope. Pending 2D echo. - Time Time Spent with patient: 25-34 minutes Smoking Cessation Education: 3 to 10 minutes Medications reviewed and adjusted accordingly: Yes Anticipated Discharge Disposition: Home, Self Care Anticipated Discharge Timeframe: within 24 hours
[2020-04-14] MEDS: FLUTICASONE/UMECLIDIN/VILANTER 100-62.5-25 MCG/DOSE IH SCH (13:51)
[2020-04-14] MEDS ORDERED: TEMAZEPAM 15 MG CAPSULE PO SCH (22:00)
[2020-04-14] MEDS: MONTELUKAST SODIUM 10 MG TABLET PO SCH (22:22)
[2020-04-14] MEDS: MELATONIN 5 MG TABLET PO PRN (22:22)
[2020-04-15] MEDS: HEPARIN SOD (PORCINE) 5,000 UNIT/ML 1 ML VIAL SUBCUT SCH (05:43)
[2020-04-15] MEDS: BUDESONIDE NEB 0.5 MG/2 ML AMPUL NEB SCH (08:20)
[2020-04-15] MEDS: IPRATROPIUM/ALBUTEROL 0.5-2.5 MG/3 ML AMPUL NEB SCH ×2 (08:20→13:38)
[2020-04-15] MEDS: DOCUSATE SODIUM 100 MG CAPSULE PO SCH (09:40)
[2020-04-15] MEDS: PREDNISONE 20 MG TABLET PO SCH (09:40)
[2020-04-15] MEDS: LEVOFLOXACIN 750 MG TABLET PO SCH (09:40)
[2020-04-15] MEDS: LISINOPRIL 10 MG TABLET PO SCH (09:40)
[2020-04-15] MEDS: FAMOTIDINE 20 MG TABLET PO SCH (09:41)
[2020-04-15] MEDS: LORATADINE 10 MG TABLET PO SCH (09:41)
[2020-04-15] MEDS: SERTRALINE HCL 50 MG TABLET PO SCH (09:41)
[2020-04-15] MEDS: AMLODIPINE BESYLATE 5 MG TABLET PO SCH (09:41)
[2020-04-15] MEDS: CHOLECALCIFEROL (D3) 1,000 UNIT (25 MCG) TABLET PO SCH (09:41)
[2020-04-15] MEDS: FLUTICASONE NASAL SPRAY 50 MCG/SPRY 120 SPRAY/16 GM NASL SCH (09:41)
[2020-04-15] MEDS: GUAIFENESIN 600 MG TABLET.SA PO SCH (09:41)
[2020-04-15] MEDS: CYANOCOBALAMIN (VITAMIN B-12) 1,000 MCG TABLET PO SCH (09:41)
[2020-04-15] MEDS: FLUTICASONE/UMECLIDIN/VILANTER 100-62.5-25 MCG/DOSE IH SCH (09:42)
[2020-04-15 11:19] VITALS: BP 125/69
--- NOTE | 2020-04-15 12:39 | XCELERA REPORT ---
[address] [address] Transthoracic Echocardiogram Report Name: KAITLIN SHAFER Age: 49 yrs Gender: Female : 1970 Patient Status: Inpatient Patient Location: [address] [place], [place] [address] Study Date: 04/15/2020 11:17 AM Height: 63 in Weight: 229 lb BSA: 2.0 m2 Procedure: A two-dimensional transthoracic echocardiogram with color flow and Doppler was performed. Study Quality: Good. Reason For Study: Murmur, hypoxia History: Murmur, hypoxia. Ordering Physician: YESSI PLUMMER Performed By: Adelaida Mukherjee Interpretation Summary The left ventricle is normal in size. There is mild concentric left ventricular hypertrophy. LV EF is 65% Left ventricular systolic function is normal. Doppler measurements suggest normal left ventricular diastolic function There is no thrombus. No ASD ,VSD ,or PFO seen. The right ventricle is normal in size and function. The right atrium is normal. The left atrial size is normal. There is no evidence of mitral valve prolapse. There is no mitral valve stenosis. There is no aortic valvular vegetation. There is no aortic valve stenosis Mild arotic sclerosi without stenosis. There is no LVOT obstruction. No aortic regurgitation is present. There is no tricuspid stenosis. There is no pulmonic valvular stenosis. There is no pulmonic valvular regurgitation. The inferior vena cava appeared normal and decreased > 50% with respiration (RAP 5-10 mmHg) MMode/2D Measurements & Calculations RVDd: 3.0 cm LVIDd: 4.4 cm FS: 36.2 % Ao root diam: 2.4 cm IVSd: 1.3 cm LVIDs: 2.8 cm EDV(Teich): 87.5 ml Ao root area: 4.7 cm2 LVPWd: 1.3 cm ESV(Teich): 29.7 ml LA dimension: 3.9 cm EF(Teich): 66.1 % Doppler Measurements & Calculations MV E max chelsie: MV P1/2t max chelsie: Ao V2 max: LV V1 max P.0 cm/sec 117.0 cm/sec 181.6 cm/sec 7.1 mmHg MV A max chelsie: MV P1/2t: 67.3 msec Ao max PG: LV V1 max: 79.5 cm/sec MVA(P1/2t): 3.3 cm2 13.2 mmHg 132.8 cm/sec MV E/A: 1.4 MV dec slope: 509.0 cm/sec2 MV dec time: 0.22 sec PA V2 max: MV P1/2t-pr_phl: 124.4 cm/sec 67.3 msec PA max P.2 mmHg Left Ventricle The left ventricle is normal in size. There is mild concentric left ventricular hypertrophy. LV EF is 65%. Left ventricular systolic function is normal. Doppler measurements suggest normal left ventricular diastolic function. The left ventricular wall motion is normal. There is no thrombus. No ASD ,VSD ,or PFO seen. Right Ventricle The right ventricle is normal in size and function. Atria The right atrium is normal. The left atrial size is normal. Mitral Valve There is no evidence of mitral valve prolapse. There is no vegetation seen on the mitral valve. There is no mitral valve stenosis. There is a trace amount of mitral regurgitation. Aortic Valve There is no aortic valvular vegetation. There is no aortic valve stenosis. Mild arotic sclerosi without stenosis. There is no LVOT obstruction. No aortic regurgitation is present. Tricuspid Valve There is no tricuspid stenosis. There is a trace amount of tricuspid regurgitation. Tricuspid regurgitation jet envelope not well defined to measure RV systolic pressure accurately. Pulmonic Valve There is no pulmonic valvular stenosis. There is no pulmonic valvular regurgitation. Great Vessels The aortic root is normal size. The inferior vena cava appeared normal and decreased > 50% with respiration (RAP 5-10 mmHg). Effusions There is no pericardial effusion. : YESSI PLUMMER Lakshmi
--- NOTE | 2020-04-25 16:03 | PDOC DISCHARGE SUMMARY ---
Impression - Admit/DC Date/PCP Admission Date/Primary Care Provider: 04/07/20 03:56 JACQUES SEWELL MD Discharge Date: 04/15/20 - Discharge Diagnosis (1) Community acquired bilateral lower lobe pneumonia Is this a current diagnosis for this admission?: Yes (2) Acute exacerbation of COPD with asthma Is this a current diagnosis for this admission?: Yes (3) Acute respiratory failure with hypoxia and hypercapnia Is this a current diagnosis for this admission?: Yes (4) Depression Is this a current diagnosis for this admission?: Yes (5) Hypertension Is this a current diagnosis for this admission?: Yes (6) Tobacco use disorder Is this a current diagnosis for this admission?: Yes (7) Morbid obesity Is this a current diagnosis for this admission?: Yes (8) Obstructive sleep apnea Is this a current diagnosis for this admission?: Yes (9) Heart murmur Is this a current diagnosis for this admission?: Yes - Additional Information Resuscitation Status: Full Code Discharge Diet: As Tolerated Discharge Activity: Activity As Tolerated, Balance Activity w/Rest Referrals: JACQUES SEWELL MD [Primary Care Provider] - 04/23/20 8:45 am Prescriptions: Fluticasone/Salmeterol [Advair 500-50 Diskus 14 Dose/Diskus] 1 inh IH Q12H 30 Days #1 inhaler Tiotropium [place] [Spiriva Respimat] 4 gm IH DAILY 30 Days #1 mist.inhal Home Medications: Albuterol Sulfate [Proair HFA Inhalation Aerosol 8.5 gm MDI] 2 puff IH Q4HP PRN 04/07/20 Albuterol Sulfate [Ventolin 0.083% Neb 2.5 mg/3 mL Ampul] 1 vial NEB RTQ4HP PRN 04/07/20 Amlodipine Besylate [Norvasc 5 mg Tablet] 5 mg PO DAILY 04/07/20 Cholecalciferol (Vitamin D3) [Vitamin D3 1000 Unit Tablet] 1,000 unit PO DAILY 04/07/20 Cyanocobalamin (Vitamin B-12) [Vitamin B-12 1000 mcg Tablet] 1,000 mcg PO DAILY 04/07/20 Lisinopril [Prinivil 10 mg Tablet] 30 mg PO DAILY 04/07/20 Sertraline HCl [Zoloft 50 mg Tablet] 100 mg PO DAILY 04/07/20 Fluticasone/Salmeterol [Advair 500-50 Diskus 14 Dose/Diskus] 1 inh IH Q12H 30 Days #1 inhaler 04/15/20 Tiotropium [place] [Spiriva Respimat] 4 gm IH DAILY 30 Days #1 mist.inhal 04/15/20 History of Present Illiness History of Present Illness: KAITLIN SHAFER is a 49 year old female who presents the emergency room with a one-day history of dyspnea. 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 Her dyspnea was worsened by exertion or activity, was accompanied by wheezing and a subjective fever, and is associated with COVID-19 exposure. She denies other associated or accompanying signs and symptoms. She admits prior similar episodes due to her asthma. She is an everyday cigarette smoker. She has not identified any additional aggravating or ameliorating factors for her dyspnea. In the emergency room she was found to have an elevated white blood count, hypoxic and hypercapnic respiratory failure on arterial blood gases and a chest x-ray revealing bibasilar pneumonia. She was treated with IV antibiotics, nebulizer therapy and intravenous Solu-Medrol as well as intravenous magnesium sulfate. She was tested for COVID-19 and blood cultures were performed. She was subsequently admitted to the hospital for further evaluation treatment Hospital Course Hospital Course: (1) Community acquired bilateral lower lobe pneumonia Most likely community-acquired, due to to coccus species commplicated by underlying COPD/asthma and tobacco abuse. COVID-19 serology negative. ABG 04/07/2020 shows hypercarbia and hypoxemia. Received 9 days of IV antibiotics. Received 3 days of p.o. levofloxacin. Received 6 days of IV azithromycin. Received 6 days of IV ceftriaxone. SPO2 WNL on RA at the time of discharge. Was started on duo nebs, ICS, LABA, LABA, flutter valve and incentive spirometry. (2) Acute exacerbation of COPD with asthma Moderate improvement. SPO2 WNL on RA. Acute exacerbated with wheezing on physical examination. Outpatient patient still smoking. Was a started on continue BiPAP, duo nebs, ICS, LABA, LABA, pulmonary toileting, incentive spirometry and flutter valve. (3) Acute respiratory failure with hypoxia and hypercapnia As per #1. (4) Depression Denied any suicidal or homicidal ideation. Resume home meds. Outpatient PCP and psychiatry follow-up. (5) Hypertension Euvolemic. Normotensive. Resume home meds. Outpatient PCP follow-up with adjustment of daily. IV PRN hydralazine and metoprolol. Weight loss recommended an outpatient nocturnal polysomnography recommended. (6) Tobacco use disorder Counseled on quitting. NicoDerm patch provided. (7) Morbid obesity BMI 41.1. Diet and lifestyle modification recommended. Hemoglobin A1c 5.7. Lipid panel WNL. TSH WNL. (8) Obstructive sleep apnea ABG positive for hypercarbia and hypoxemia. Patient reporting great improvement of her daily fatigue and sleepiness since been using BiPAP while inpatient. Patient will greatly benefit from weight loss outpatient proximal nocturnal polysomnography. Need to be discharged on supplemental O2 pending nocturnal polysomnography and CPAP obtainment. Unfortunately patient does not have insurance and may not be able to get outpatient polysomnography. Was asked to follow-up with Dr. Maya for nocturnal polysomnography. (9) Heart murmur Diastolic murmur on physical examination. Dyspnea on exertion and hypoxia. proBNP TSH, d-dimer WNL. Denies any history of CAD, palpitation, rheumatic heart disease, lightheadedness, syncope or presyncope. 2D echo no acute changes. Physical Exam Vital Signs: Temp Pulse Resp BP Pulse Ox 97.5 F 65 12 125/69 92 04/15/20 14:04 04/15/20 14:04 04/15/20 14:04 04/15/20 14:04 04/15/20 14:04 Pulse Oximeter Continuous Start: 04/07/20 03:57 Freq: RTQ4 Status: Discharge Protocol: Document 04/15/20 12:00 C[facility] (Rec: 04/15/20 13:30 [facility] [id number]) Pulse Oximetry Assessment Oxygen Saturation (92-100) 92 Oxygen Delivery Method Room Air Fraction of Inspired Oxygen (FIO2) 21 Equipment Usage Equipment in Use Continuous SpO2 Machine # 7 Pulse Oximeter Nocturnal Start: 04/10/20 12:18 Freq: RTQ4 Status: Complete Protocol: Document 04/11/20 06:15 CMI (Rec: 04/11/20 06:15 CMI [id number]) Nocturnal Pulse Oximetry Equipment Usage Equipment Discontinued Continuous SpO2 Machine # 7 General appearance: PRESENT: no acute distress, morbidly obese, well-developed, well-nourished Head exam: PRESENT: atraumatic, normocephalic Neck exam: ABSENT: carotid bruit, JVD, lymphadenopathy, thyromegaly Respiratory exam: PRESENT: clear to auscultation adalid. ABSENT: rales, rhonchi, wheezes GI/Abdominal exam: PRESENT: normal bowel sounds, soft. ABSENT: distended, guarding, mass, organolmegaly, rebound, tenderness Neurological exam: PRESENT: alert, awake, oriented to person, oriented to place, oriented to time, oriented to situation, CN II-XII grossly intact. ABSENT: motor sensory deficit Results Laboratory Results: WBC 8.5 10^3/uL (4.0-10.5) 04/12/20 05:45 RBC 4.81 10^6/uL (3.72-5.28) 04/12/20 05:45 Hgb 15.0 g/dL (12.0-15.5) 04/12/20 05:45 Hct 44.0 % (36.0-47.0) 04/12/20 05:45 MCV 92 fl (80-97) 04/12/20 05:45 MCH 31.2 pg (27.0-33.4) 04/12/20 05:45 MCHC 34.0 g/dL (32.0-36.0) 04/12/20 05:45 RDW 14.3 % (11.5-14.0) H 04/12/20 05:45 Plt Count 239 10^3/uL (150-450) 04/12/20 05:45 Lymph % (Auto) 21.9 % (13-45) 04/12/20 05:45 [place] % (Auto) 8.2 % (3-13) 04/12/20 05:45 Eos % (Auto) 3.6 % (0-6) 04/12/20 05:45 Baso % (Auto) 0.9 % (0-2) 04/12/20 05:45 Absolute Neuts (auto) 5.5 10^3/uL (1.7-8.2) 04/12/20 05:45 Absolute Lymphs (auto) 1.9 10^3/uL (0.5-4.7) 04/12/20 05:45 Absolute Monos (auto) 0.7 10^3/uL (0.1-1.4) 04/12/20 05:45 Absolute Eos (auto) 0.3 10^3/uL (0.0-0.6) 04/12/20 05:45 Absolute Basos (auto) 0.1 10^3/uL (0.0-0.2) 04/12/20 05:45 Total Counted 100 04/06/20 21:42 Seg Neutrophils % 65.4 % (42-78) 04/12/20 05:45 Seg Neuts % (Manual) 86 % (42-78) H 04/06/20 21:42 Band Neutrophils % 2 % (3-5) L 04/06/20 21:42 Lymphocytes % (Manual) 9 % (13-45) L 04/06/20 21:42 Monocytes % (Manual) 3 % (3-13) 04/06/20 21:42 Eosinophils % (Manual) 0 % (0-6) 04/06/20 21:42 Basophils % (Manual) 0 % (0-2) 04/06/20 21:42 Abs Neuts (Manual) 11.9 10^3/uL (1.7-8.2) H 04/06/20 21:42 Abs Lymphs (Manual) 1.2 10^3/uL (0.5-4.7) 04/06/20 21:42 Abs Monocytes (Manual) 0.4 10^3/uL (0.1-1.4) 04/06/20 21:42 Absolute Eos (Manual) 0.0 10^3/uL (0.0-0.6) 04/06/20 21:42 Abs Basophils (Manual) 0.0 10^3/uL (0.0-0.2) 04/06/20 21:42 Toxic Granulation SLIGHT 04/06/20 21:42 Platelet Comment ADEQUATE 04/06/20 21:42 Poikilocytosis SLIGHT 04/06/20 21:42 Anisocytosis SLIGHT 04/06/20 21:42 Ovalocytes SLIGHT 04/06/20 21:42 D-Dimer 0.40 ug/mL (0.00-0.50) 04/13/20 08:35 Carbonic Acid 1.69 mmol/L (1.05-1.35) H 04/07/20 11:25 HCO3/H2CO3 Ratio 15:1 04/07/20 11:25 ABG pH 7.28 (7.35-7.45) L 04/07/20 11:25 ABG pCO2 56.1 mmHg (35-45) H 04/07/20 11:25 ABG pO2 64.6 mmHg (80-100) L 04/07/20 11:25 ABG HCO3 25.8 mmol/L (20-24) H 04/07/20 11:25 ABG Total CO2 27.5 mmol/L (21-25) H 04/07/20 11:25 ABG O2 Saturation 89.7 % (94-98) L 04/07/20 11:25 ABG Base Excess -2.0 mmol/L 04/07/20 11:25 VBG pH 7.26 (7.30-7.42) L 04/07/20 01:53 VBG pCO2 66.8 mmHg (35-63) H* 04/07/20 01:53 VBG HCO3 29.2 mmol/L (20-32) 04/07/20 01:53 VBG Base Excess -0.1 mmol/L 04/07/20 01:53 FiO2 50% 04/07/20 11:25 Sodium 137.1 mmol/L (137-145) 04/12/20 05:45 Potassium 4.4 mmol/L (3.6-5.0) 04/12/20 05:45 Chloride 100 mmol/L (98-107) 04/12/20 05:45 Carbon Dioxide 32 mmol/L (22-30) H 04/12/20 05:45 Anion Gap 5 (5-19) 04/12/20 05:45 BUN 19 mg/dL (7-20) 04/12/20 05:45 Creatinine 0.67 mg/dL (0.52-1.25) 04/12/20 05:45 Est GFR ( Amer) > 60 (>60) 04/12/20 05:45 Est GFR (MDRD) Non-Af > 60 (>60) 04/12/20 05:45 Glucose 109 mg/dL (75-110) 04/12/20 05:45 Hemoglobin A1c % 5.7 % (4.7-6.0) 04/09/20 07:05 Lactic Acid 1.6 mmol/L (0.7-2.1) 04/07/20 01:25 Calcium 8.9 mg/dL (8.4-10.2) 04/12/20 05:45 Magnesium 2.2 mg/dL (1.6-2.3) 04/12/20 05:45 Total Bilirubin 0.3 mg/dL (0.2-1.3) 04/12/20 05:45 Direct Bilirubin 0.0 mg/dL (0.0-0.4) 04/12/20 05:45 Neonat Total Bilirubin Not Reportable 04/12/20 05:45 Neonat Direct Bilirubin Not Reportable 04/12/20 05:45 Neonat Indirect Bili Not Reportable 04/12/20 05:45 AST 18 U/L (14-36) 04/12/20 05:45 ALT 19 U/L (<35) 04/12/20 05:45 Alkaline Phosphatase 59 U/L (38-126) 04/12/20 05:45 NT-Pro-B Natriuret Pep 29 pg/mL (<125) 04/13/20 08:35 Total Protein 6.8 g/dL (6.3-8.2) 04/12/20 05:45 Albumin 3.8 g/dL (3.5-5.0) 04/12/20 05:45 Triglycerides 142 mg/dL (<150) 04/09/20 07:05 Cholesterol 138.70 mg/dL (0-200) 04/09/20 07:05 LDL Cholesterol Direct 88 mg/dL (<100) 04/09/20 07:05 VLDL Cholesterol 28.0 mg/dL (10-31) 04/09/20 07:05 HDL Cholesterol 36 mg/dL (>40) L 04/09/20 07:05 TSH 4.20 uIU/mL (0.47-4.68) 04/09/20 07:05 Urine Color PJ 04/06/20 23:31 Urine Appearance CLOUDY 04/06/20 23:31 Urine pH 5.0 (5.0-9.0) 04/06/20 23:31 Ur Specific [place] 1.024 04/06/20 23:31 Urine Protein 100 mg/dL (NEGATIVE) H 04/06/20 23:31 Urine Glucose (UA) NEGATIVE mg/dL (NEGATIVE) 04/06/20 23:31 Urine Ketones NEGATIVE mg/dL (NEGATIVE) 04/06/20 23:31 Urine Blood LARGE (NEGATIVE) H 04/06/20 23:31 Urine Nitrite NEGATIVE (NEGATIVE) 04/06/20 23:31 Urine Bilirubin NEGATIVE (NEGATIVE) 04/06/20 23:31 Urine Urobilinogen NEGATIVE mg/dL (<2.0) 04/06/20 23:31 Ur Leukocyte Esterase NEGATIVE (NEGATIVE) 04/06/20 23:31 Urine WBC (Auto) 5 /HPF 04/06/20 23:31 Urine RBC (Auto) 7 /HPF 04/06/20 23:31 U Hyaline Cast (Auto) 36 /LPF 04/06/20 23:31 Urine Bacteria (Auto) 1+ /HPF 04/06/20 23:31 Squamous Epi Cells Auto 18 /HPF 04/06/20 23:31 Urine Mucus (Auto) MANY /LPF 04/06/20 23:31 Urine Ascorbic Acid NEGATIVE (NEGATIVE) 04/06/20 23:31 COVID-19 Source NASOPHARYNGEAL 04/06/20 23:22 COVID-19 (REINALDO) NOT DETECTED 04/06/20 23:22 04/13/20 08:35 NT-Pro-B Natriuret Pep 29 Impressions: Chest X-Ray 04/06/20 22:00 IMPRESSION: Bibasilar airspace opacities worrisome for pneumonitis copyright 2011 [email or web address]- All Rights Reserved Chest X-Ray 04/09/20 00:00 IMPRESSION: Borderline heart size and pulmonary vascular congestion but no nikita edema. Cannot exclude airspace disease in either lower lung. Atelectasis versus pneumonia. Stroke Is this a Stroke Patient?: No Acute Heart Failure - Is this a Heart Failure Patient?: No
== END 2020-04-15 14:46 | disposition home or self-care (01) | DRG 190 ==
LOC: ER 21:33 → EH 04-07 03:56 → 3W 04-07 05:50 → 4N 04-08 18:00
PROVIDERS: ADMIT Emergency Medicine; ATTEND Internal Medicine
PROC: 5A09557 Assistance with Respiratory Ventilation, Greater than 96 Consecutive Hours, Continuous Positive Airway Pressure (ICD-10-PCS; principal; 2020-04-07)
DX: J44.1 Chronic obstructive pulmonary disease with (acute) exacerbation (principal); J96.01 Acute respiratory failure with hypoxia; J96.02 Acute respiratory failure with hypercapnia; J15.4 Pneumonia due to other streptococci; J45.21 Mild intermittent asthma with (acute) exacerbation; Z68.41 Body mass index [BMI] 40.0-44.9, adult; J44.0 Chronic obstructive pulmonary disease with (acute) lower respiratory infection; I10 Essential (primary) hypertension; F32.9 Major depressive disorder, single episode, unspecified; E66.01 Morbid (severe) obesity due to excess calories; G47.33 Obstructive sleep apnea (adult) (pediatric); R01.1 Cardiac murmur, unspecified; Z79.52 Long term (current) use of systemic steroids; F17.210 Nicotine dependence, cigarettes, uncomplicated; Z20.828 Contact with and (suspected) exposure to other viral communicable diseases
CPT/HCPCS: 36415; 71045; 71046; 80048; 80053; 80061; 81001; 82803; 83036; 83605; 83735; 83880; 84443; 85025; 85027; 85379; 87040; 87077; 87150; 87186; 87635; 93005; 93010; 93306; 94640; 94660; 94667; 94762; 94799; 96365; 96366; 96375; 99285; C9803; J0456; J0696; J1644; J1956; J2405; J2920; J2930; J3475; J3490; J7030; J7060; J7512